=== PATIENT | female | born 1995 | race Caucasian/White ===

== ENCOUNTER 2018-07-14 16:00 | Emergency (ER) | payer OTHER, SELFPAY ==
[2018-07-14 16:09] VITALS: BP 128/61; PULSE 80; RESP 18; TEMP 36.4; O2SAT 97; BMI 34.3
[2018-07-14] MEDS: TET,DIPH,PERTUSS(ACELL),VAC/PF 0.5 ML SYRINGE IM (17:29)
--- NOTE | 2018-07-14 17:33 | ED_ITS ---
HPI - Wound/Laceration <DANIA Dumont - Last Filed: 07/14/18 21:34> General Chief Complaint: Wound/Laceration Stated Complaint: Cut on R thumb Time Seen by Provider: 07/14/18 16:22 Source: patient Mode of arrival: ambulatory Limitations: no limitations History of Present Illness HPI narrative: Patient is a 22-year-old female single nonsmoker who presents with a chief complaint of a laceration on the medial aspect of her right thumb. She states that she was cut by shattered glass. She does not. She states for her motion. She has applied pressure in complains of continued bleeding. She denies any erythema or pus. Happened just prior to arrival. Related Data Allergies Allergy/AdvReac Type Severity Reaction Status Date / Time No Known Drug Allergies Allergy Verified 07/14/18 16:17 Review of Systems <EFRAÍN DumontPBrittani - Last Filed: 07/14/18 21:34> Review of Systems GENERAL: Denies chills, fatigue, malaise, fever, sweats. HEENT: Denies sinus pain, ear pain, sore throat, difficulty swallowing, dizziness. RESPIRATORY: Denies dyspnea, cough, wheezing, hemoptysis, sputum. CARDIOVASCULAR: Denies chest pain, palpitations, orthopnea, edema, GASTROINTESTINAL: Denies nausea, vomiting, abdominal pain, diarrhea, constipation, melena. : Denies dysuria, frequency, incontinence, hematuria, urinary retention. MUSCULOSKELETAL: denies weakness, joint pain, or bony pain SKIN: See HPI NEUROLOGIC: Denies weakness, headache, numbness, change in speech, confusion, seizures, incoordination. PSYCHIATRIC: No concerning psychosocial issues. 12 point review of systems is negative except for those stated above Exam <EFRAÍN DumontPBrittani - Last Filed: 07/14/18 21:34> Narrative Exam Narrative: GENERAL: This is a well-nourished, well-developed patient, in mild distress. HEAD: Atraumatic. Normocephalic. No temporal or scalp tenderness. EYES: Pupils equal round and reactive. Extraocular motions intact. No scleral icterus. No injection or drainage. ENT: Nose without bleeding, purulent drainage or septal hematoma. Throat without erythema, tonsillar hypertrophy or exudate. Uvula midline. Airway patent. NECK: Trachea midline. No JVD or lymphadenopathy. Supple, nontender, no meningeal signs. CARDIOVASCULAR: Regular rate and rhythm without murmurs, gallops, or rubs. RESPIRATORY: Clear to auscultation. Breath sounds equal bilaterally. No wheezes , rales, or rhonchi. GASTROINTESTINAL: Abdomen soft, non-tender, nondistended. No hepato-splenomegaly , or palpable masses. No guarding. EXTREMITIES: No clubbing, cyanosis, or edema. No joint tenderness, effusion, or edema noted. Full range of motion noted right thumb. Capillary refill less than 2 sec right thumb. BACK: Nontender without deformity or crepitance. No flank tenderness. NEURO: AOx3. SKIN: 1 cm v-shaped laceration Initial Vital Signs Initial Vital Signs: Vital Signs Temperature 97.6 F 07/14/18 16:09 Pulse Rate 80 07/14/18 16:09 Respiratory Rate 18 07/14/18 16:09 Blood Pressure 128/61 07/14/18 16:09 Pulse Oximetry 97 07/14/18 16:09 <Yoselin Nova DO - Last Filed: 07/15/18 07:40> Initial Vital Signs Initial Vital Signs: Vital Signs Temperature 97.6 F 07/14/18 16:09 Pulse Rate 80 07/14/18 16:09 Respiratory Rate 18 07/14/18 16:09 Blood Pressure 128/61 07/14/18 16:09 Pulse Oximetry 97 07/14/18 16:09 Procedures <KETAN Dumont - Last Filed: 07/14/18 21:34> Laceration Repair Laceration 1: Site: hand Side (If applicable): right Size (cm): 1 Description: stellate Depth: simple, single layer Pre-repair: wound explored, irrigated extensively (Cleansed with sterile water, Hibiclens) and deep structures intact Skin layer closed with: other (Dermabond and steri strip ) Course <KETAN Dumont - Last Filed: 07/14/18 21:34> Orders Ordered: Discontinued Medications Diphtheria/Tetanus/Acell Pertussis (Adacel) 0.5 ml IM .ONCE ONE Stop: 07/14/18 17:00 Last Admin: 07/14/18 17:29 Dose: 0.5 ml Vital Signs - 8 hr 07/14/18 16:09 07/14/18 18:05 Temperature 97.6 F Pulse Rate 80 82 Respiratory Rate 18 16 Blood Pressure 128/61 Blood Pressure [Left Arm] 120/83 Pulse Oximetry 97 100 <Yoselin Nova DO - Last Filed: 07/15/18 07:40> Orders Ordered: Discontinued Medications Diphtheria/Tetanus/Acell Pertussis (Adacel) 0.5 ml IM .ONCE ONE Stop: 07/14/18 17:00 Last Admin: 07/14/18 17:29 Dose: 0.5 ml Vital Signs - 8 hr 07/14/18 16:09 07/14/18 18:05 Temperature 97.6 F Pulse Rate 80 82 Respiratory Rate 18 16 Blood Pressure 128/61 Blood Pressure [Left Arm] 120/83 Pulse Oximetry 97 100 MDM - Wound/Laceration <YONIS Dumont-BC - Last Filed: 07/14/18 21:34> MDM Narrative Medical decision making narrative: Patient is 22-year-old female presents with a 1 cm laceration on her thumb. It was cleansed with water and Hibiclens. Her tetanus was updated. The wound was closed with Dermabond and Steri-Strips without incident. I discussed at length return precautions and monitoring for signs and symptoms of infection such as erythema pus and fever. Patient no questions or concerns upon discharge. Discharge Plan Departure Patient Disposition: Home Clinical Impression: Laceration Discharge Date/Time: 07/14/18 18:17 Interventions: ED Discharge Assessment Last Done: 07/14/18 18:17 Instructions: DI for Laceration Repair Steri-Strips, DI for Laceration Repair With Dermabond Activity Restrictions/Additional Instructions: Please monitor your wound for signs and symptoms of infection. Please follow- up with your primary care provider if you notice any signs of infection such as redness, pus fever. Please keep your thumb clean and dry and intact. Please do not submerge her thumb in to dirty water. I have given you a work note for a few days off of work. We also updated your tetanus today. Stand Alone Forms: Work Release Note <Yoselin Nova DO - Last Filed: 07/15/18 07:40> Cosign ED Attending Olyaature Attestation: I was immediately available in the department for consultation. Documentation has been reviewed. I agree with assessment and plan.
[2018-07-14 18:05] VITALS: BP 120/83; PULSE 82; RESP 16; O2SAT 100
== END 2018-07-14 18:17 | disposition home or self-care (01) ==
PROVIDERS: Emergency Provider Nurse Practitioner Family
DX: S61.011A Laceration without foreign body of right thumb without damage to nail, initial encounter (principal); W25.XXXA Contact with sharp glass, initial encounter
CPT/HCPCS: 90471; 99283; 90715

== ENCOUNTER 2018-08-06 12:32 | Emergency (ER) | payer OTHER, MEDICAID, SELFPAY ==
[2018-08-06 12:42] VITALS: BP 142/90; PULSE 128; RESP 15; TEMP 39.9; O2SAT 94; BMI 33.2
[2018-08-06 12:56] VITALS: TEMP 39.5
[2018-08-06] MEDS: ACETAMINOPHEN 325 MG TABLET 975 MG PO (12:56)
--- NOTE | 2018-08-06 13:15 | DI.RAD.S_ITS ---
PROCEDURE: XR CHEST 1V INDICATIONS: suspected sepsis TECHNIQUE: One view of the chest was acquired. COMPARISON: None. FINDINGS: Surgical changes and devices: None. Lungs and pleura: No pleural effusions or pneumothorax. Lungs are clear. Mediastinum: Mediastinal contours appear normal. Heart size is normal. Bones and chest wall: No suspicious bony lesions. Mild to moderate dextroconvex curvature of the thoracic spine is present. Overlying soft tissues appear unremarkable. IMPRESSION: No acute cardiopulmonary process is evident. Dictated by: Sohan Feldman M.D. on 08/06/2018 at 12:49 Approved by: Sohan Feldman M.D. on 08/06/2018 at 12:50
[2018-08-06] MEDS: SODIUM CHLORIDE 0.9% 1,000 ML 1000 ML IV (13:25)
[2018-08-06 13:27] LABS: Add Manual Diff / Slide Review NO; Basophils Absolute Auto 0 /uL (0-100); Basophils Percent Auto 0.3 % (0-2); Eosinophils Absolute Auto 0 /uL (0-450); Eosinophils Percent Auto 0.1 % (2-4); Hematocrit 41.5 % (36-46); Hemoglobin 13.6 g/dL (12.0-16.0); Lymphocytes Absolute Auto 1100 /uL (1100-4500); Mean Corpuscular HGB Conc 32.8 % (30-36); Mean Corpuscular Volume 82.5 fL (80-100); Monocytes Absolute Auto 700 /uL (0-900); Monocytes Percent Auto 10.1 % (3-14); Neutrophils Absolute Auto 5200 /uL (1500-7000); Neutrophils Percent Auto 73.5 % (50-75); Platelet Count 212 X10^3/uL (150-400); Red Blood Cell Count 5.04 X10^6/uL (4.0-5.2)
[2018-08-06 13:36] LABS: INR 1.3 (0.9-1.3); Prothrombin Time 15.3 SECONDS (10.1-12.7)
[2018-08-06 13:39] LABS: PTT Partial Thromboplastin Tim 33 SECONDS (26.4-36.2)
[2018-08-06 13:42] LABS: Lactate (Lactic Acid) 0.9 mmol/L (0.7-2.1)
[2018-08-06 13:47] LABS: Alanine Aminotransferase 32 IU/L (9-52); Albumin 4.4 g/dL (3.5-5.0); Albumin Globulin Ratio 1.3 (1.0-2.8); Alkaline Phosphatase 66 U/L (38-126); Aspartate Aminotransferase 31 IU/L (14-36); BUN Creatinine Ratio 12.9 (6-22); Bilirubin Total 0.3 mg/dL (0.2-1.3); Blood Urea Nitrogen 9 mg/dL (7-17); Calcium 8.6 mg/dL (8.4-10.2); Carbon Dioxide 18 mmol/L (22-32); Chloride 105 mmol/L (98-107); Estimated Glomerular Filt Rate > 60.0 mL/min (>60); Globulin 3.4 g/dL (1.7-4.1); Glucose 109 mg/dL (70-100); HEMOLYSIS < 15 (0-50); Lipase 96 U/L (23-300); Sodium 136 mmol/L (137-145); Total Protein 7.8 g/dL (6.3-8.2)
--- NOTE | 2018-08-06 13:53 | ED.URI ---
HPI - URI/Sore Throat <Reina Reynoso PA-C - Last Filed: 08/06/18 21:30> General Chief Complaint: Upper Respiratory Symptoms Stated Complaint: thinks she has strep throat Time Seen by Provider: 08/06/18 13:00 Source: patient and family Mode of arrival: ambulatory Limitations: no limitations History of Present Illness HPI Narrative: This 22-year-old female the ED secondary to 3 day history of cough, mostly dry, with headache and sore throat. She states that she has had intermittent pain in her neck and also aches all over in her joints sore everywhere . She states that she has had some runny nose. She has had some left earache. She has had some sinus congestion but denies sinus pain. She denies wheeze or dyspnea. She states that she has some diarrhea if she coughs hard enough, and sometimes coughs to the point that she will dry heave. She has not had any abdominal pain or nausea. She denies any rashes. She denies any specific exposures but numerous coworkers have been ill. She denies possibility of stating test was negative yesterday. She is concerned that she has strep throat. She states that headache started after cough. She has been working out quite a lot lately but denies any specific trauma Related Data Allergies Allergy/AdvReac Type Severity Reaction Status Date / Time No Known Drug Allergies Allergy Verified 08/06/18 12:42 Review of Systems <Reina Reynoso PA-C - Last Filed: 08/06/18 21:30> Review of Systems ROS Unobtainable: All systems reviewed & are unremarkable except as noted in HPI and below Exam <Reina Reynoso PA-C - Last Filed: 08/06/18 21:30> Narrative Exam Narrative: GENERAL APPEARANCE: Patient sitting comfortably, in no distress. HEAD: No sinus TTP. EYES: PERRL, EOMI. EARS: Normal auditory canals, TMS intact with normal light reflexes. ORAL CAVITY: Normal oropharynx. THROAT: Moderate erythema and tonsillar enlargement without exudate NECK/THYROID: Neck supple, full range of motion, no cervical lymphadenopathy. LUNGS: Clear to auscultation bilaterally, occasional hoarse cough on exam. HEART: RRR without murmur, nl S1, S2, no S3 or S4. ABDOMEN: Soft, nontender, nondistended, +bowel sounds x4 quadrants DERMATOLOGIC: No exanthem MUSCULOSKELETAL: No tenderness over the cervical spine or paraspinal musculature. She is tender over the strap musculature especially at the suboccipital insertions. Full range of motion of the cervical spine. NEUROLOGIC: Alert and oriented with normal speech and coordination Initial Vital Signs Initial Vital Signs: Vital Signs Temperature 103.9 F H 08/06/18 12:42 Pulse Rate 128 H 08/06/18 12:42 Respiratory Rate 15 08/06/18 12:42 Blood Pressure 142/90 H 08/06/18 12:42 Pulse Oximetry 94 08/06/18 12:42 <DO Brittani Landry Last Filed: 08/07/18 08:24> Initial Vital Signs Initial Vital Signs: Vital Signs Temperature 103.9 F H 08/06/18 12:42 Pulse Rate 128 H 08/06/18 12:42 Respiratory Rate 15 08/06/18 12:42 Blood Pressure 142/90 H 08/06/18 12:42 Pulse Oximetry 94 08/06/18 12:42 Course <Reina Reynoso PA-C - Last Filed: 08/06/18 21:30> Orders Ordered: Discontinued Medications Acetaminophen (Tylenol) 975 mg PO NOW ONE Stop: 08/06/18 12:55 Last Admin: 08/06/18 12:56 Dose: 975 mg Sodium Chloride (Normal Saline 0.9%) 1,000 mls @ 1,000 mls/hr IV BOLUS ONE Stop: 08/06/18 14:14 Last Infusion: 08/06/18 14:44 Dose: 0 mls/hr Admin: 08/06/18 13:25 Dose: 1,000 mls/hr Loperamide HCl (Imodium) 4 mg PO NOW ONE Stop: 08/06/18 14:41 Last Admin: 08/06/18 15:05 Dose: 4 mg Vital Signs - 8 hr 08/06/18 13:57 08/06/18 14:06 08/06/18 15:40 Temperature 100.5 F H Pulse Rate 140 H 101 H Respiratory Rate 24 16 Blood Pressure 124/77 Blood Pressure [Left Arm] 112/67 Pulse Oximetry 93 100 <DO Brittani Landry Last Filed: 08/07/18 08:24> Orders Ordered: Discontinued Medications Acetaminophen (Tylenol) 975 mg PO NOW ONE Stop: 08/06/18 12:55 Last Admin: 08/06/18 12:56 Dose: 975 mg Sodium Chloride (Normal Saline 0.9%) 1,000 mls @ 1,000 mls/hr IV BOLUS ONE Stop: 08/06/18 14:14 Last Infusion: 08/06/18 14:44 Dose: 0 mls/hr Admin: 08/06/18 13:25 Dose: 1,000 mls/hr Loperamide HCl (Imodium) 4 mg PO NOW ONE Stop: 08/06/18 14:41 Last Admin: 08/06/18 15:05 Dose: 4 mg Vital Signs - 8 hr 08/06/18 13:57 08/06/18 14:06 08/06/18 15:40 Temperature 100.5 F H Pulse Rate 140 H 101 H Respiratory Rate 24 16 Blood Pressure 124/77 Blood Pressure [Left Arm] 112/67 Pulse Oximetry 93 100 MDM - URI/Sore Throat <Reina Reynoso PA-C - Last Filed: 08/06/18 21:30> Lab Data Result diagrams: 08/06/18 13:10 08/06/18 13:10 Lab Results 08/06/18 08/06/18 08/06/18 Range/Units 13:10 13:10 13:10 WBC 7.0 (4.5-11.0) X10^3/uL RBC 5.04 (4.0-5.2) X10^6/uL Hgb 13.6 (12.0-16.0) g/dL Hct 41.5 (36-46) % MCV 82.5 (80-100) fL MCH 27.0 (26-34) PG MCHC 32.8 (30-36) % RDW 15.0 H (11.6-14.8) % Plt Count 212 (150-400) X10^3/uL Neut % (Auto) 73.5 (50-75) % Lymph % (Auto) 16.0 L (25-40) % [place] % (Auto) 10.1 (3-14) % Eos % (Auto) 0.1 L (2-4) % Baso % (Auto) 0.3 (0-2) % Neut # (Auto) 5200 (8562-3083) /uL Lymph # (Auto) 1100 (2848-8184) /uL [place] # (Auto) 700 (0-900) /uL Eos # (Auto) 0 (0-450) /uL Baso # (Auto) 0 (0-100) /uL PT 15.3 H (10.1-12.7) SECONDS INR 1.3 (0.9-1.3) APTT 33 (26.4-36.2) SECONDS Sodium (137-145) mmol/L Potassium (3.4-5.1) mmol/L Chloride (98-107) mmol/L Carbon Dioxide (22-32) mmol/L BUN (7-17) mg/dL Creatinine (0.52-1.04) mg/dL Estimated GFR (>60) mL/min BUN/Creatinine Ratio (6-22) Glucose (70-100) mg/dL Lactate (0.7-2.1) mmol/L Calcium (8.4-10.2) mg/dL Total Bilirubin (0.2-1.3) mg/dL AST (14-36) IU/L ALT (9-52) IU/L Alkaline Phosphatase (38-126) U/L Total Protein (6.3-8.2) g/dL Albumin (3.5-5.0) g/dL Globulin (1.7-4.1) g/dL Albumin/Globulin Ratio (1.0-2.8) Lipase (23-300) U/L Procalcitonin 0.09 (<0.5) ng/mL Monoscreen (Negative) Influenza A & B (PCR) (Negative) 08/06/18 08/06/18 08/06/18 Range/Units 13:10 13:10 13:10 WBC (4.5-11.0) X10^3/uL RBC (4.0-5.2) X10^6/uL Hgb (12.0-16.0) g/dL Hct (36-46) % MCV (80-100) fL MCH (26-34) PG MCHC (30-36) % RDW (11.6-14.8) % Plt Count (150-400) X10^3/uL Neut % (Auto) (50-75) % Lymph % (Auto) (25-40) % [place] % (Auto) (3-14) % Eos % (Auto) (2-4) % Baso % (Auto) (0-2) % Neut # (Auto) (0959-8112) /uL Lymph # (Auto) (4111-1975) /uL [place] # (Auto) (0-900) /uL Eos # (Auto) (0-450) /uL Baso # (Auto) (0-100) /uL PT (10.1-12.7) SECONDS INR (0.9-1.3) APTT (26.4-36.2) SECONDS Sodium 136 L (137-145) mmol/L Potassium 4.0 (3.4-5.1) mmol/L Chloride 105 (98-107) mmol/L Carbon Dioxide 18 L (22-32) mmol/L BUN 9 (7-17) mg/dL Creatinine 0.70 (0.52-1.04) mg/dL Estimated GFR > 60.0 (>60) mL/min BUN/Creatinine Ratio 12.9 (6-22) Glucose 109 H (70-100) mg/dL Lactate 0.9 (0.7-2.1) mmol/L Calcium 8.6 (8.4-10.2) mg/dL Total Bilirubin 0.3 (0.2-1.3) mg/dL AST 31 (14-36) IU/L ALT 32 (9-52) IU/L Alkaline Phosphatase 66 (38-126) U/L Total Protein 7.8 (6.3-8.2) g/dL Albumin 4.4 (3.5-5.0) g/dL Globulin 3.4 (1.7-4.1) g/dL Albumin/Globulin Ratio 1.3 (1.0-2.8) Lipase 96 (23-300) U/L Procalcitonin (<0.5) ng/mL Monoscreen Negative (Negative) Influenza A & B (PCR) (Negative) 08/06/18 Range/Units 13:57 WBC (4.5-11.0) X10^3/uL RBC (4.0-5.2) X10^6/uL Hgb (12.0-16.0) g/dL Hct (36-46) % MCV (80-100) fL MCH (26-34) PG MCHC (30-36) % RDW (11.6-14.8) % Plt Count (150-400) X10^3/uL Neut % (Auto) (50-75) % Lymph % (Auto) (25-40) % [place] % (Auto) (3-14) % Eos % (Auto) (2-4) % Baso % (Auto) (0-2) % Neut # (Auto) (5087-3372) /uL Lymph # (Auto) (7408-7037) /uL [place] # (Auto) (0-900) /uL Eos # (Auto) (0-450) /uL Baso # (Auto) (0-100) /uL PT (10.1-12.7) SECONDS INR (0.9-1.3) APTT (26.4-36.2) SECONDS Sodium (137-145) mmol/L Potassium (3.4-5.1) mmol/L Chloride (98-107) mmol/L Carbon Dioxide (22-32) mmol/L BUN (7-17) mg/dL Creatinine (0.52-1.04) mg/dL Estimated GFR (>60) mL/min BUN/Creatinine Ratio (6-22) Glucose (70-100) mg/dL Lactate (0.7-2.1) mmol/L Calcium (8.4-10.2) mg/dL Total Bilirubin (0.2-1.3) mg/dL AST (14-36) IU/L ALT (9-52) IU/L Alkaline Phosphatase (38-126) U/L Total Protein (6.3-8.2) g/dL Albumin (3.5-5.0) g/dL Globulin (1.7-4.1) g/dL Albumin/Globulin Ratio (1.0-2.8) Lipase (23-300) U/L Procalcitonin (<0.5) ng/mL Monoscreen (Negative) Influenza A & B (PCR) Positive, type a A (Negative) Point of Care Testing Test Results Negative Rapid Strep A Negative Urine Dip Bedside Urine Glucose Negative Bedside Urine Bilirubin - Negative Bedside Urine Ketone - Negative Urine Specific [place] 1.020 Bedside Urine Occult Blood + Bedside Urine pH 6.0 Bedside Urine Protein +/- 15 Bedside Urine Urobilinogen - Negative Bedside Urine Nitrite - Negative Bedside Urine Leukocytes + 70 Esterase Imaging Data Chest x-ray: Radiologist's impression: XRay Report Signed Patient: Micheline Joe MR#: [id number] : 1995 Acct:[id number] Age/Sex: 22 / F Date of Service: 08/06/18 Loc: ED Accession Number: [id number] Procedure: XR chest 1V Ordering Provider: Talon Welsh D.O. PROCEDURE: XR CHEST 1V INDICATIONS: suspected sepsis TECHNIQUE: One view of the chest was acquired. COMPARISON: None. FINDINGS: Surgical changes and devices: None. Lungs and pleura: No pleural effusions or pneumothorax. Lungs are clear. Mediastinum: Mediastinal contours appear normal. Heart size is normal. Bones and chest wall: No suspicious bony lesions. Mild to moderate dextroconvex curvature of the thoracic spine is present. Overlying soft tissues appear unremarkable. IMPRESSION: No acute cardiopulmonary process is evident. Dictated by: Sohan Feldman M.D. on 08/06/2018 at 12:49 Approved by: Sohan Feldman M.D. on 08/06/2018 at 12:50 <Talon Welsh DO - Last Filed: 08/07/18 08:24> Lab Data Lab Results 08/06/18 08/06/18 08/06/18 Range/Units 13:10 13:10 13:10 WBC 7.0 (4.5-11.0) X10^3/uL RBC 5.04 (4.0-5.2) X10^6/uL Hgb 13.6 (12.0-16.0) g/dL Hct 41.5 (36-46) % MCV 82.5 (80-100) fL MCH 27.0 (26-34) PG MCHC 32.8 (30-36) % RDW 15.0 H (11.6-14.8) % Plt Count 212 (150-400) X10^3/uL Neut % (Auto) 73.5 (50-75) % Lymph % (Auto) 16.0 L (25-40) % [place] % (Auto) 10.1 (3-14) % Eos % (Auto) 0.1 L (2-4) % Baso % (Auto) 0.3 (0-2) % Neut # (Auto) 5200 (6983-9943) /uL Lymph # (Auto) 1100 (8053-3300) /uL [place] # (Auto) 700 (0-900) /uL Eos # (Auto) 0 (0-450) /uL Baso # (Auto) 0 (0-100) /uL PT 15.3 H (10.1-12.7) SECONDS INR 1.3 (0.9-1.3) APTT 33 (26.4-36.2) SECONDS Sodium (137-145) mmol/L Potassium (3.4-5.1) mmol/L Chloride (98-107) mmol/L Carbon Dioxide (22-32) mmol/L BUN (7-17) mg/dL Creatinine (0.52-1.04) mg/dL Estimated GFR (>60) mL/min BUN/Creatinine Ratio (6-22) Glucose (70-100) mg/dL Lactate (0.7-2.1) mmol/L Calcium (8.4-10.2) mg/dL Total Bilirubin (0.2-1.3) mg/dL AST (14-36) IU/L ALT (9-52) IU/L Alkaline Phosphatase (38-126) U/L Total Protein (6.3-8.2) g/dL Albumin (3.5-5.0) g/dL Globulin (1.7-4.1) g/dL Albumin/Globulin Ratio (1.0-2.8) Lipase (23-300) U/L Procalcitonin 0.09 (<0.5) ng/mL Monoscreen (Negative) Influenza A & B (PCR) (Negative) 08/06/18 08/06/18 08/06/18 Range/Units 13:10 13:10 13:10 WBC (4.5-11.0) X10^3/uL RBC (4.0-5.2) X10^6/uL Hgb (12.0-16.0) g/dL Hct (36-46) % MCV (80-100) fL MCH (26-34) PG MCHC (30-36) % RDW (11.6-14.8) % Plt Count (150-400) X10^3/uL Neut % (Auto) (50-75) % Lymph % (Auto) (25-40) % [place] % (Auto) (3-14) % Eos % (Auto) (2-4) % Baso % (Auto) (0-2) % Neut # (Auto) (7713-7973) /uL Lymph # (Auto) (3817-8746) /uL [place] # (Auto) (0-900) /uL Eos # (Auto) (0-450) /uL Baso # (Auto) (0-100) /uL PT (10.1-12.7) SECONDS INR (0.9-1.3) APTT (26.4-36.2) SECONDS Sodium 136 L (137-145) mmol/L Potassium 4.0 (3.4-5.1) mmol/L Chloride 105 (98-107) mmol/L Carbon Dioxide 18 L (22-32) mmol/L BUN 9 (7-17) mg/dL Creatinine 0.70 (0.52-1.04) mg/dL Estimated GFR > 60.0 (>60) mL/min BUN/Creatinine Ratio 12.9 (6-22) Glucose 109 H (70-100) mg/dL Lactate 0.9 (0.7-2.1) mmol/L Calcium 8.6 (8.4-10.2) mg/dL Total Bilirubin 0.3 (0.2-1.3) mg/dL AST 31 (14-36) IU/L ALT 32 (9-52) IU/L Alkaline Phosphatase 66 (38-126) U/L Total Protein 7.8 (6.3-8.2) g/dL Albumin 4.4 (3.5-5.0) g/dL Globulin 3.4 (1.7-4.1) g/dL Albumin/Globulin Ratio 1.3 (1.0-2.8) Lipase 96 (23-300) U/L Procalcitonin (<0.5) ng/mL Monoscreen Negative (Negative) Influenza A & B (PCR) (Negative) 08/06/18 Range/Units 13:57 WBC (4.5-11.0) X10^3/uL RBC (4.0-5.2) X10^6/uL Hgb (12.0-16.0) g/dL Hct (36-46) % MCV (80-100) fL MCH (26-34) PG MCHC (30-36) % RDW (11.6-14.8) % Plt Count (150-400) X10^3/uL Neut % (Auto) (50-75) % Lymph % (Auto) (25-40) % [place] % (Auto) (3-14) % Eos % (Auto) (2-4) % Baso % (Auto) (0-2) % Neut # (Auto) (7362-3750) /uL Lymph # (Auto) (9955-1187) /uL [place] # (Auto) (0-900) /uL Eos # (Auto) (0-450) /uL Baso # (Auto) (0-100) /uL PT (10.1-12.7) SECONDS INR (0.9-1.3) APTT (26.4-36.2) SECONDS Sodium (137-145) mmol/L Potassium (3.4-5.1) mmol/L Chloride (98-107) mmol/L Carbon Dioxide (22-32) mmol/L BUN (7-17) mg/dL Creatinine (0.52-1.04) mg/dL Estimated GFR (>60) mL/min BUN/Creatinine Ratio (6-22) Glucose (70-100) mg/dL Lactate (0.7-2.1) mmol/L Calcium (8.4-10.2) mg/dL Total Bilirubin (0.2-1.3) mg/dL AST (14-36) IU/L ALT (9-52) IU/L Alkaline Phosphatase (38-126) U/L Total Protein (6.3-8.2) g/dL Albumin (3.5-5.0) g/dL Globulin (1.7-4.1) g/dL Albumin/Globulin Ratio (1.0-2.8) Lipase (23-300) U/L Procalcitonin (<0.5) ng/mL Monoscreen (Negative) Influenza A & B (PCR) Positive, type a A (Negative) Point of Care Testing Test Results Negative Rapid Strep A Negative Urine Dip Bedside Urine Glucose Negative Bedside Urine Bilirubin - Negative Bedside Urine Ketone - Negative Urine Specific [place] 1.020 Bedside Urine Occult Blood + Bedside Urine pH 6.0 Bedside Urine Protein +/- 15 Bedside Urine Urobilinogen - Negative Bedside Urine Nitrite - Negative Bedside Urine Leukocytes + 70 Esterase Discharge Plan Departure Patient Disposition: Home Clinical Impression: Influenza Discharge Date/Time: 08/06/18 15:41 Interventions: ED Discharge Assessment Last Done: 08/06/18 15:40 Instructions: DI for Influenza -- Child Activity Restrictions/Additional Instructions: Your testing is positive for influenza. Please rest. Take 800 mg of ibuprofen every 8 hr to help with aches and fever. You can add Tylenol as needed. You can use [id number] Mucinex and decongestants as needed to help with cough and drainage. You can take over the counter immodium if needed for the loose stools. Return as we talked about if you have new symptoms such as difficulty breathing. Stand Alone Forms: Work Release Note <Talon Welsh DO - Last Filed: 08/07/18 08:24> Cosign ED Attending [place] Attestation: I was immediately available in the department for consultation. Documentation has been reviewed. I agree with assessment and plan.
[2018-08-06 13:57] VITALS: TEMP 38.1
[2018-08-06 13:57] LABS: Procalcitonin 0.09 ng/mL (<0.5)
[2018-08-06 14:06] VITALS: BP 112/67; PULSE 140; RESP 24; O2SAT 93
--- NOTE | 2018-08-06 14:15 | ED_ITS ---
HPI - URI/Sore Throat <Reina Reynoso PA-C - Last Filed: 08/06/18 21:30> General Chief Complaint: Upper Respiratory Symptoms Stated Complaint: thinks she has strep throat Time Seen by Provider: 08/06/18 13:00 Source: patient and family Mode of arrival: ambulatory Limitations: no limitations History of Present Illness HPI Narrative: This 22-year-old female the ED secondary to 3 day history of cough, mostly dry, with headache and sore throat. She states that she has had intermittent pain in her neck and also aches all over in her joints sore everywhere . She states that she has had some runny nose. She has had some left earache. She has had some sinus congestion but denies sinus pain. She denies wheeze or dyspnea. She states that she has some diarrhea if she coughs hard enough, and sometimes coughs to the point that she will dry heave. She has not had any abdominal pain or nausea. She denies any rashes. She denies any specific exposures but numerous coworkers have been ill. She denies possibility of stating test was negative yesterday. She is concerned that she has strep throat. She states that headache started after cough. She has been working out quite a lot lately but denies any specific trauma Related Data Allergies Allergy/AdvReac Type Severity Reaction Status Date / Time No Known Drug Allergies Allergy Verified 08/06/18 12:42 Review of Systems <Reina Reynoso PA-C - Last Filed: 08/06/18 21:30> Review of Systems ROS Unobtainable: All systems reviewed & are unremarkable except as noted in HPI and below Exam <Reina Reynoso PA-C - Last Filed: 08/06/18 21:30> Narrative Exam Narrative: GENERAL APPEARANCE: Patient sitting comfortably, in no distress. HEAD: No sinus TTP. EYES: PERRL, EOMI. EARS: Normal auditory canals, TMS intact with normal light reflexes. ORAL CAVITY: Normal oropharynx. THROAT: Moderate erythema and tonsillar enlargement without exudate NECK/THYROID: Neck supple, full range of motion, no cervical lymphadenopathy. LUNGS: Clear to auscultation bilaterally, occasional hoarse cough on exam. HEART: RRR without murmur, nl S1, S2, no S3 or S4. ABDOMEN: Soft, nontender, nondistended, +bowel sounds x4 quadrants DERMATOLOGIC: No exanthem MUSCULOSKELETAL: No tenderness over the cervical spine or paraspinal musculature. She is tender over the strap musculature especially at the suboccipital insertions. Full range of motion of the cervical spine. NEUROLOGIC: Alert and oriented with normal speech and coordination Initial Vital Signs Initial Vital Signs: Vital Signs Temperature 103.9 F H 08/06/18 12:42 Pulse Rate 128 H 08/06/18 12:42 Respiratory Rate 15 08/06/18 12:42 Blood Pressure 142/90 H 08/06/18 12:42 Pulse Oximetry 94 08/06/18 12:42 <DO Brittani Landry Last Filed: 08/07/18 08:24> Initial Vital Signs Initial Vital Signs: Vital Signs Temperature 103.9 F H 08/06/18 12:42 Pulse Rate 128 H 08/06/18 12:42 Respiratory Rate 15 08/06/18 12:42 Blood Pressure 142/90 H 08/06/18 12:42 Pulse Oximetry 94 08/06/18 12:42 Course <Reina Reynoso PA-C - Last Filed: 08/06/18 21:30> Orders Ordered: Discontinued Medications Acetaminophen (Tylenol) 975 mg PO NOW ONE Stop: 08/06/18 12:55 Last Admin: 08/06/18 12:56 Dose: 975 mg Sodium Chloride (Normal Saline 0.9%) 1,000 mls @ 1,000 mls/hr IV BOLUS ONE Stop: 08/06/18 14:14 Last Infusion: 08/06/18 14:44 Dose: 0 mls/hr Admin: 08/06/18 13:25 Dose: 1,000 mls/hr Loperamide HCl (Imodium) 4 mg PO NOW ONE Stop: 08/06/18 14:41 Last Admin: 08/06/18 15:05 Dose: 4 mg Vital Signs - 8 hr 08/06/18 13:57 08/06/18 14:06 08/06/18 15:40 Temperature 100.5 F H Pulse Rate 140 H 101 H Respiratory Rate 24 16 Blood Pressure 124/77 Blood Pressure [Left Arm] 112/67 Pulse Oximetry 93 100 <DO Brittani Landry Last Filed: 08/07/18 08:24> Orders Ordered: Discontinued Medications Acetaminophen (Tylenol) 975 mg PO NOW ONE Stop: 08/06/18 12:55 Last Admin: 08/06/18 12:56 Dose: 975 mg Sodium Chloride (Normal Saline 0.9%) 1,000 mls @ 1,000 mls/hr IV BOLUS ONE Stop: 08/06/18 14:14 Last Infusion: 08/06/18 14:44 Dose: 0 mls/hr Admin: 08/06/18 13:25 Dose: 1,000 mls/hr Loperamide HCl (Imodium) 4 mg PO NOW ONE Stop: 08/06/18 14:41 Last Admin: 08/06/18 15:05 Dose: 4 mg Vital Signs - 8 hr 08/06/18 13:57 08/06/18 14:06 08/06/18 15:40 Temperature 100.5 F H Pulse Rate 140 H 101 H Respiratory Rate 24 16 Blood Pressure 124/77 Blood Pressure [Left Arm] 112/67 Pulse Oximetry 93 100 MDM - URI/Sore Throat <Reina Reynoso PA-C - Last Filed: 08/06/18 21:30> Lab Data Result diagrams: 08/06/18 13:10 08/06/18 13:10 Lab Results 08/06/18 08/06/18 08/06/18 Range/Units 13:10 13:10 13:10 WBC 7.0 (4.5-11.0) X10^3/uL RBC 5.04 (4.0-5.2) X10^6/uL Hgb 13.6 (12.0-16.0) g/dL Hct 41.5 (36-46) % MCV 82.5 (80-100) fL MCH 27.0 (26-34) PG MCHC 32.8 (30-36) % RDW 15.0 H (11.6-14.8) % Plt Count 212 (150-400) X10^3/uL Neut % (Auto) 73.5 (50-75) % Lymph % (Auto) 16.0 L (25-40) % [place] % (Auto) 10.1 (3-14) % Eos % (Auto) 0.1 L (2-4) % Baso % (Auto) 0.3 (0-2) % Neut # (Auto) 5200 (0932-0622) /uL Lymph # (Auto) 1100 (7681-4789) /uL [place] # (Auto) 700 (0-900) /uL Eos # (Auto) 0 (0-450) /uL Baso # (Auto) 0 (0-100) /uL PT 15.3 H (10.1-12.7) SECONDS INR 1.3 (0.9-1.3) APTT 33 (26.4-36.2) SECONDS Sodium (137-145) mmol/L Potassium (3.4-5.1) mmol/L Chloride (98-107) mmol/L Carbon Dioxide (22-32) mmol/L BUN (7-17) mg/dL Creatinine (0.52-1.04) mg/dL Estimated GFR (>60) mL/min BUN/Creatinine Ratio (6-22) Glucose (70-100) mg/dL Lactate (0.7-2.1) mmol/L Calcium (8.4-10.2) mg/dL Total Bilirubin (0.2-1.3) mg/dL AST (14-36) IU/L ALT (9-52) IU/L Alkaline Phosphatase (38-126) U/L Total Protein (6.3-8.2) g/dL Albumin (3.5-5.0) g/dL Globulin (1.7-4.1) g/dL Albumin/Globulin Ratio (1.0-2.8) Lipase (23-300) U/L Procalcitonin 0.09 (<0.5) ng/mL Monoscreen (Negative) Influenza A & B (PCR) (Negative) 08/06/18 08/06/18 08/06/18 Range/Units 13:10 13:10 13:10 WBC (4.5-11.0) X10^3/uL RBC (4.0-5.2) X10^6/uL Hgb (12.0-16.0) g/dL Hct (36-46) % MCV (80-100) fL MCH (26-34) PG MCHC (30-36) % RDW (11.6-14.8) % Plt Count (150-400) X10^3/uL Neut % (Auto) (50-75) % Lymph % (Auto) (25-40) % [place] % (Auto) (3-14) % Eos % (Auto) (2-4) % Baso % (Auto) (0-2) % Neut # (Auto) (0376-2564) /uL Lymph # (Auto) (0103-0780) /uL [place] # (Auto) (0-900) /uL Eos # (Auto) (0-450) /uL Baso # (Auto) (0-100) /uL PT (10.1-12.7) SECONDS INR (0.9-1.3) APTT (26.4-36.2) SECONDS Sodium 136 L (137-145) mmol/L Potassium 4.0 (3.4-5.1) mmol/L Chloride 105 (98-107) mmol/L Carbon Dioxide 18 L (22-32) mmol/L BUN 9 (7-17) mg/dL Creatinine 0.70 (0.52-1.04) mg/dL Estimated GFR > 60.0 (>60) mL/min BUN/Creatinine Ratio 12.9 (6-22) Glucose 109 H (70-100) mg/dL Lactate 0.9 (0.7-2.1) mmol/L Calcium 8.6 (8.4-10.2) mg/dL Total Bilirubin 0.3 (0.2-1.3) mg/dL AST 31 (14-36) IU/L ALT 32 (9-52) IU/L Alkaline Phosphatase 66 (38-126) U/L Total Protein 7.8 (6.3-8.2) g/dL Albumin 4.4 (3.5-5.0) g/dL Globulin 3.4 (1.7-4.1) g/dL Albumin/Globulin Ratio 1.3 (1.0-2.8) Lipase 96 (23-300) U/L Procalcitonin (<0.5) ng/mL Monoscreen Negative (Negative) Influenza A & B (PCR) (Negative) 08/06/18 Range/Units 13:57 WBC (4.5-11.0) X10^3/uL RBC (4.0-5.2) X10^6/uL Hgb (12.0-16.0) g/dL Hct (36-46) % MCV (80-100) fL MCH (26-34) PG MCHC (30-36) % RDW (11.6-14.8) % Plt Count (150-400) X10^3/uL Neut % (Auto) (50-75) % Lymph % (Auto) (25-40) % [place] % (Auto) (3-14) % Eos % (Auto) (2-4) % Baso % (Auto) (0-2) % Neut # (Auto) (1438-4661) /uL Lymph # (Auto) (2427-9419) /uL [place] # (Auto) (0-900) /uL Eos # (Auto) (0-450) /uL Baso # (Auto) (0-100) /uL PT (10.1-12.7) SECONDS INR (0.9-1.3) APTT (26.4-36.2) SECONDS Sodium (137-145) mmol/L Potassium (3.4-5.1) mmol/L Chloride (98-107) mmol/L Carbon Dioxide (22-32) mmol/L BUN (7-17) mg/dL Creatinine (0.52-1.04) mg/dL Estimated GFR (>60) mL/min BUN/Creatinine Ratio (6-22) Glucose (70-100) mg/dL Lactate (0.7-2.1) mmol/L Calcium (8.4-10.2) mg/dL Total Bilirubin (0.2-1.3) mg/dL AST (14-36) IU/L ALT (9-52) IU/L Alkaline Phosphatase (38-126) U/L Total Protein (6.3-8.2) g/dL Albumin (3.5-5.0) g/dL Globulin (1.7-4.1) g/dL Albumin/Globulin Ratio (1.0-2.8) Lipase (23-300) U/L Procalcitonin (<0.5) ng/mL Monoscreen (Negative) Influenza A & B (PCR) Positive, type a A (Negative) Point of Care Testing Test Results Negative Rapid Strep A Negative Urine Dip Bedside Urine Glucose Negative Bedside Urine Bilirubin - Negative Bedside Urine Ketone - Negative Urine Specific [place] 1.020 Bedside Urine Occult Blood + Bedside Urine pH 6.0 Bedside Urine Protein +/- 15 Bedside Urine Urobilinogen - Negative Bedside Urine Nitrite - Negative Bedside Urine Leukocytes + 70 Esterase Imaging Data Chest x-ray: Radiologist's impression: XRay Report Signed Patient: Micheline Joe MR#: [id number] : 1995 Acct:[id number] Age/Sex: 22 / F Date of Service: 08/06/18 Loc: ED Accession Number: [id number] Procedure: XR chest 1V Ordering Provider: Talon Welsh D.O. PROCEDURE: XR CHEST 1V INDICATIONS: suspected sepsis TECHNIQUE: One view of the chest was acquired. COMPARISON: None. FINDINGS: Surgical changes and devices: None. Lungs and pleura: No pleural effusions or pneumothorax. Lungs are clear. Mediastinum: Mediastinal contours appear normal. Heart size is normal. Bones and chest wall: No suspicious bony lesions. Mild to moderate dextroconvex curvature of the thoracic spine is present. Overlying soft tissues appear unremarkable. IMPRESSION: No acute cardiopulmonary process is evident. Dictated by: Sohan Feldman M.D. on 08/06/2018 at 12:49 Approved by: Sohan Feldman M.D. on 08/06/2018 at 12:50 <Talon Welsh DO - Last Filed: 08/07/18 08:24> Lab Data Lab Results 08/06/18 08/06/18 08/06/18 Range/Units 13:10 13:10 13:10 WBC 7.0 (4.5-11.0) X10^3/uL RBC 5.04 (4.0-5.2) X10^6/uL Hgb 13.6 (12.0-16.0) g/dL Hct 41.5 (36-46) % MCV 82.5 (80-100) fL MCH 27.0 (26-34) PG MCHC 32.8 (30-36) % RDW 15.0 H (11.6-14.8) % Plt Count 212 (150-400) X10^3/uL Neut % (Auto) 73.5 (50-75) % Lymph % (Auto) 16.0 L (25-40) % [place] % (Auto) 10.1 (3-14) % Eos % (Auto) 0.1 L (2-4) % Baso % (Auto) 0.3 (0-2) % Neut # (Auto) 5200 (9794-4860) /uL Lymph # (Auto) 1100 (2613-6531) /uL [place] # (Auto) 700 (0-900) /uL Eos # (Auto) 0 (0-450) /uL Baso # (Auto) 0 (0-100) /uL PT 15.3 H (10.1-12.7) SECONDS INR 1.3 (0.9-1.3) APTT 33 (26.4-36.2) SECONDS Sodium (137-145) mmol/L Potassium (3.4-5.1) mmol/L Chloride (98-107) mmol/L Carbon Dioxide (22-32) mmol/L BUN (7-17) mg/dL Creatinine (0.52-1.04) mg/dL Estimated GFR (>60) mL/min BUN/Creatinine Ratio (6-22) Glucose (70-100) mg/dL Lactate (0.7-2.1) mmol/L Calcium (8.4-10.2) mg/dL Total Bilirubin (0.2-1.3) mg/dL AST (14-36) IU/L ALT (9-52) IU/L Alkaline Phosphatase (38-126) U/L Total Protein (6.3-8.2) g/dL Albumin (3.5-5.0) g/dL Globulin (1.7-4.1) g/dL Albumin/Globulin Ratio (1.0-2.8) Lipase (23-300) U/L Procalcitonin 0.09 (<0.5) ng/mL Monoscreen (Negative) Influenza A & B (PCR) (Negative) 08/06/18 08/06/18 08/06/18 Range/Units 13:10 13:10 13:10 WBC (4.5-11.0) X10^3/uL RBC (4.0-5.2) X10^6/uL Hgb (12.0-16.0) g/dL Hct (36-46) % MCV (80-100) fL MCH (26-34) PG MCHC (30-36) % RDW (11.6-14.8) % Plt Count (150-400) X10^3/uL Neut % (Auto) (50-75) % Lymph % (Auto) (25-40) % [place] % (Auto) (3-14) % Eos % (Auto) (2-4) % Baso % (Auto) (0-2) % Neut # (Auto) (2997-1662) /uL Lymph # (Auto) (0926-3763) /uL [place] # (Auto) (0-900) /uL Eos # (Auto) (0-450) /uL Baso # (Auto) (0-100) /uL PT (10.1-12.7) SECONDS INR (0.9-1.3) APTT (26.4-36.2) SECONDS Sodium 136 L (137-145) mmol/L Potassium 4.0 (3.4-5.1) mmol/L Chloride 105 (98-107) mmol/L Carbon Dioxide 18 L (22-32) mmol/L BUN 9 (7-17) mg/dL Creatinine 0.70 (0.52-1.04) mg/dL Estimated GFR > 60.0 (>60) mL/min BUN/Creatinine Ratio 12.9 (6-22) Glucose 109 H (70-100) mg/dL Lactate 0.9 (0.7-2.1) mmol/L Calcium 8.6 (8.4-10.2) mg/dL Total Bilirubin 0.3 (0.2-1.3) mg/dL AST 31 (14-36) IU/L ALT 32 (9-52) IU/L Alkaline Phosphatase 66 (38-126) U/L Total Protein 7.8 (6.3-8.2) g/dL Albumin 4.4 (3.5-5.0) g/dL Globulin 3.4 (1.7-4.1) g/dL Albumin/Globulin Ratio 1.3 (1.0-2.8) Lipase 96 (23-300) U/L Procalcitonin (<0.5) ng/mL Monoscreen Negative (Negative) Influenza A & B (PCR) (Negative) 08/06/18 Range/Units 13:57 WBC (4.5-11.0) X10^3/uL RBC (4.0-5.2) X10^6/uL Hgb (12.0-16.0) g/dL Hct (36-46) % MCV (80-100) fL MCH (26-34) PG MCHC (30-36) % RDW (11.6-14.8) % Plt Count (150-400) X10^3/uL Neut % (Auto) (50-75) % Lymph % (Auto) (25-40) % [place] % (Auto) (3-14) % Eos % (Auto) (2-4) % Baso % (Auto) (0-2) % Neut # (Auto) (0279-8043) /uL Lymph # (Auto) (0406-8099) /uL [place] # (Auto) (0-900) /uL Eos # (Auto) (0-450) /uL Baso # (Auto) (0-100) /uL PT (10.1-12.7) SECONDS INR (0.9-1.3) APTT (26.4-36.2) SECONDS Sodium (137-145) mmol/L Potassium (3.4-5.1) mmol/L Chloride (98-107) mmol/L Carbon Dioxide (22-32) mmol/L BUN (7-17) mg/dL Creatinine (0.52-1.04) mg/dL Estimated GFR (>60) mL/min BUN/Creatinine Ratio (6-22) Glucose (70-100) mg/dL Lactate (0.7-2.1) mmol/L Calcium (8.4-10.2) mg/dL Total Bilirubin (0.2-1.3) mg/dL AST (14-36) IU/L ALT (9-52) IU/L Alkaline Phosphatase (38-126) U/L Total Protein (6.3-8.2) g/dL Albumin (3.5-5.0) g/dL Globulin (1.7-4.1) g/dL Albumin/Globulin Ratio (1.0-2.8) Lipase (23-300) U/L Procalcitonin (<0.5) ng/mL Monoscreen (Negative) Influenza A & B (PCR) Positive, type a A (Negative) Point of Care Testing Test Results Negative Rapid Strep A Negative Urine Dip Bedside Urine Glucose Negative Bedside Urine Bilirubin - Negative Bedside Urine Ketone - Negative Urine Specific [place] 1.020 Bedside Urine Occult Blood + Bedside Urine pH 6.0 Bedside Urine Protein +/- 15 Bedside Urine Urobilinogen - Negative Bedside Urine Nitrite - Negative Bedside Urine Leukocytes + 70 Esterase Discharge Plan Departure Patient Disposition: Home Clinical Impression: Influenza Discharge Date/Time: 08/06/18 15:41 Interventions: ED Discharge Assessment Last Done: 08/06/18 15:40 Instructions: DI for Influenza -- Child Activity Restrictions/Additional Instructions: Your testing is positive for influenza. Please rest. Take 800 mg of ibuprofen every 8 hr to help with aches and fever. You can add Tylenol as needed. You can use [id number] Mucinex and decongestants as needed to help with cough and drainage. You can take over the counter immodium if needed for the loose stools. Return as we talked about if you have new symptoms such as difficulty breathing. Stand Alone Forms: Work Release Note <Talon Welsh DO - Last Filed: 08/07/18 08:24> Cosign ED Attending [place] Attestation: I was immediately available in the department for consultation. Documentation has been reviewed. I agree with assessment and plan.
[2018-08-06] MEDS: LOPERAMIDE 2 MG CAPSULE 4 MG PO (15:05)
[2018-08-06 15:40] VITALS: BP 124/77; PULSE 101; RESP 16; O2SAT 100
[2018-08-11 12:30] LABS: Monotest Negative (Negative)
== END 2018-08-06 15:41 | disposition home or self-care (01) ==
PROVIDERS: Emergency Medicine; Emergency Provider Internal Medicine
DX: J11.1 Influenza due to unidentified influenza virus with other respiratory manifestations (principal)
CPT/HCPCS: 36415; 36591; 71045; 80053; 81003; 81025; 83605; 83690; 84145; 85025; 85610; 85730; 86318; 87040; 87400; 87880; 96360; 99283; 99284

== ENCOUNTER → 2018-11-06 16:02 | Outpatient (CLI) | payer OTHER, MEDICAID, SELFPAY ==
--- NOTE | 2018-11-06 | DI.US.S_ITS ---
PROCEDURE: US OB <= 14 WEEKS FETUS INDICATIONS: INITAL SIZING AND DATING OUTSIDE/PRIOR DATING DATA: Last menstrual period (LMP): Unknown. LMP-based estimated date of delivery (JERO): Unknown. First dating scan (date and location): 11/06/18, [facility] Estimated date of delivery (JERO) from first dating scan: 04/20/19. TECHNIQUE: Real-time scanning was performed of the fetus and maternal pelvic organs, with image documentation. COMPARISON: None. FINDINGS: Embryo: Living early second trimester intrauterine Presentation is breech Placenta is posterior with no previa BPD: 3.0 cm, 15 weeks 4 days HC: 12.9 cm, 16 weeks 4 days AC: 11.4 cm, 17 weeks 2 days FL: 2.1 cm, 16 weeks 2 days Ultrasound estimated gestational age: 16 weeks 3 days IMPRESSION: Living early second trimester intrauterine measuring 16 weeks 3 days. Comment: Consider anatomic survey second trimester ultrasound in 2-4 weeks. Dictated by: Doe Biggs M.D. on 11/06/2018 at 17:57 Approved by: Doe Biggs M.D. on 11/06/2018 at 18:00
== END ==
PROVIDERS: PCP Internal Medicine; Visit Provider Internal Medicine
DX: Z34.92 Encounter for supervision of normal pregnancy, unspecified, second trimester (principal); Z3A.16 16 weeks gestation of pregnancy
CPT/HCPCS: 76811

== ENCOUNTER → 2018-12-02 09:20 | Outpatient (CLI) | payer OTHER, MEDICAID, SELFPAY ==
--- NOTE | 2018-12-02 | DI.US.S_ITS ---
PROCEDURE: US OB >= 14 WEEKS FETUS INDICATIONS: 20 WEEK ANATOMICAL SURVEY OUTSIDE/PRIOR DATING DATA: Last menstrual period (LMP): Unknown. LMP-based estimated date of delivery (JERO): Unknown. First dating scan (date and location): 11/06/18, [facility] Estimated date of delivery (JERO) from first dating scan: 04/20/19.. TECHNIQUE: Real-time scanning was performed of the fetus, with image documentation and biometric measurements. Endovaginal scanning: No COMPARISON: None. FINDINGS: General: A single living intrauterine gestation is present. Presentation: Transverse. Placenta: Placental position is posterior, without previa. Amniotic fluid index: 6.9 cm, normal range is 5-24 cm. heart rate: 143 beats per minute. Maternal cervical canal: 5.7 cm long. Normal lower limit is 2.5 cm. biometrics: Biparietal diameter: 19 weeks 5 days Head circumference: 19 weeks 5 days Abdominal circumference: 20 weeks 2 days Femur length: 20 weeks 2 days Estimated gestational age from initial scan: 20 weeks 1 day Composite gestational age from present scan: 20 weeks 2 days Estimated weight and percentile: 342 g; 52nd percentile Measurement variability for biometric dating: +/- 7 days from 14 weeks to 15 weeks 6 days gestation, +/- 10 days from 16 weeks to 21 weeks 6 days gestation, +/- 2 weeks from 22 weeks to 27 weeks 6 days gestation, +/- 3 weeks for 28 weeks gestation or later. weight reference: 4500 g or EFW >90/95% is considered macrosomia or large for gestational age. EFW <10% is small for gestational age. EFW 5% or less is considered intra-uterine growth restriction. Anatomic survey: Neuro: Ventricles are non-dilated at less than 10 mm. Cisterna magna is normal at 3-11 mm. Cerebellum is normal in size and morphology. Nuchal skin fold: Normal at less than 6 mm between 14-21 weeks gestational age. Face: Not well-seen. Spine: Not well-seen. Heart: 4-chambered heart is present, with normal ventricular outflow tracts. Diaphragm: Diaphragm is intact. Stomach: Left-sided stomach is present. Kidneys: No hydronephrosis. Normal is less than 5 mm in 2nd trimester, less than 7 mm in 3rd trimester. Cord: 3-vessel cord has orthotopic insertion. Bladder: Normal in size. Extremities: All 4 extremities identified. IMPRESSION: 1. Single living IUP redemonstrated and interval growth is normal. 2. face and spine not well-seen; otherwise normal anatomy. Dictated by: Jesus Connolly [facility] Interpreted: Bryant Tinoco MD on 12/02/2018 at 12:04 Approved by: Bryant Tinoco M.D. on 12/02/2018 at 14:31
== END ==
PROVIDERS: PCP Internal Medicine; Visit Provider Family Medicine
DX: Z36.89 Encounter for other specified antenatal screening (principal); Z3A.20 20 weeks gestation of pregnancy
CPT/HCPCS: 76811

== ENCOUNTER → 2019-01-19 08:15 | Outpatient (CLI) | payer OTHER, MEDICAID, SELFPAY ==
--- NOTE | 2019-01-19 | DI.US.S_ITS ---
PROCEDURE: US OB FOLLOW UP INDICATIONS: FOLLOW UP FACE AND SPINE FROM ANATOMY SCAN OUTSIDE/PRIOR DATING DATA: Last menstrual period (LMP): Unknown. LMP-based estimated date of delivery (JERO): Unknown. First dating scan (date and location): 11/06/18, [facility] Estimated date of delivery (JERO) from first dating scan: 04/20/19. TECHNIQUE: Real-time scanning was performed of the fetus, with image documentation and biometric measurements. Endovaginal scanning: No COMPARISON: [facility], , OB >= 14 WEEKS FETUS, 12/02/2018, 9:57. FINDINGS: General: A single living intrauterine gestation is present. Presentation: Vertex. Placenta: Placental position is posterior, without previa. Amniotic fluid index: 11.0 cm, normal range is 5-24 cm. heart rate: 140 beats per minute. Maternal cervical canal: 3.0 cm long. Normal lower limit is 2.5 cm. Estimated gestational age from initial scan: 27 weeks 0 days facial profile well-visualized; otherwise normal appearance the face and spine. IMPRESSION: 1. Single living IUP redemonstrated and today's exam demonstrating normal appearance of the face and spine. Facial profile cannot well-seen. Dictated by: Jesus RAMON Interpreted: Shakila Hoang MD on 01/19/2019 at 17:09 Approved by: Shakila Hoang M.D. on 01/19/2019 at 18:48
== END ==
PROVIDERS: PCP Internal Medicine; Visit Provider Family Medicine
DX: Z36.2 Encounter for other antenatal screening follow-up (principal); Z3A.27 27 weeks gestation of pregnancy
CPT/HCPCS: 76816

== ENCOUNTER → 2019-03-24 18:03 | Outpatient (ROUT) | payer OTHER, MEDICAID, SELFPAY | PROVIDERS: PCP Internal Medicine; Visit Provider Family Medicine | DX: O98.819 Other maternal infectious and parasitic diseases complicating pregnancy, unspecified trimester (principal) | CPT/HCPCS: 87081 ==

== ENCOUNTER 2019-03-26 17:29 | Outpatient (CLI) | payer OTHER, MEDICAID, SELFPAY | END 2019-03-26 18:40 | disposition home or self-care (01) | LOC: OB 04-01 07:45 | PROVIDERS: PCP Family Medicine; Visit Provider Family Medicine | DX: O36.8130 Decreased fetal movements, third trimester, not applicable or unspecified (principal); Z3A.36 36 weeks gestation of pregnancy | CPT/HCPCS: 59025; G0378; G0379 ==

== ENCOUNTER 2019-04-10 01:18 | Inpatient (IN) | payer OTHER, MEDICAID, SELFPAY ==
[2019-04-10 03:53] LABS: Add Manual Diff / Slide Review NO; Basophils Absolute Auto 100 /uL (0-100); Basophils Percent Auto 0.6 % (0-2); Eosinophils Absolute Auto 100 /uL (0-450); Eosinophils Percent Auto 0.6 % (2-4); Hematocrit 42.5 % (36-46); Hemoglobin 13.9 g/dL (12.0-16.0); Lymphocytes Absolute Auto 2300 /uL (1100-4500); Lymphocytes Percent Auto 19.8 % (25-40); Mean Corpuscular HGB Conc 32.7 % (30-36); Mean Corpuscular Volume 85.6 fL (80-100); Monocytes Absolute Auto 800 /uL (0-900); Monocytes Percent Auto 6.9 % (3-14); Neutrophils Absolute Auto 8300 /uL (1500-7000); Neutrophils Percent Auto 72.1 % (50-75); Platelet Count 265 X10^3/uL (150-400); Red Blood Cell Count 4.96 X10^6/uL (4.0-5.2); Red Cell Distribution Width 15.1 % (11.6-14.8); White Blood Cell Count 11.4 X10^3/uL (4.5-11.0)
--- NOTE | 2019-04-10 05:13 | P.HPOB_ITS ---
OB HPI Date/Time Date of admission: 04/10/19 Date Patient Seen: 04/10/19 Time Patient Seen: 05:14 History of Present Condition Chief complaint: Phys ref : 1 Para: 0 Estimated Date of Delivery: 04/20/19 Estimated Gestational Age (weeks): 38.5 Narrative: Micheline Joe is a 23 year old female who presents at 38 and 5 7 weeks with spontaneous rupture. Ruptured at approximately 1:00 a.m. today. Clear fluid. Really would had no significant contractions prior to that. Presented shortly after. Good movement. No blood. Was grossly ruptured. heart monitor was reactive. Patient had unremarkable course. Presented at 18 weeks. testing for genetics was not done. Otherwise labs were within normal limits. 1 hour glucose test was normal. Patient had no issues with blood pressure or other changes. Past medical history significant for hypothyroid. TSH during was normal. Otherwise unremarkable history. Does have a history of scoliosis. Some concern about possible issues with delivery. Had discussed previously with OB and anesthesia and did not feel would be an issue. History of Present care: good care Dating criteria: LMP confirmed by 2nd trimester US Ultrasounds: normal mid trimester US Obstetrical complications: none Medical complications: none Preadmission Labs Blood type: A (+) positive -: Antibody screen: negative, Cystic fibrosis screen: unknown, GBS status: negative, HBsAG: negative, HIV: negative, HSV 1: negative, HSV 2: negative and RPR/VDLR: negative -: Chlamydia screen: not detected and Gonorrhea screen: not detected -: Rubella: immune and Varicella: immune HCT: 42 HCAB: negative PAP: Normal Prior (ies) History: None Evaluation Evaluation Laboratory results: Laboratory Tests 04/10/19 04/10/19 03:43 03:43 WBC 11.4 H RBC 4.96 Hgb 13.9 Hct 42.5 MCV 85.6 MCH 28.0 MCHC 32.7 RDW 15.1 H Plt Count 265 Neut % (Auto) 72.1 Lymph % (Auto) 19.8 L [place] % (Auto) 6.9 Eos % (Auto) 0.6 L Baso % (Auto) 0.6 Neut # (Auto) 8300 H Lymph # (Auto) 2300 [place] # (Auto) 800 Eos # (Auto) 100 Baso # (Auto) 100 Blood Type A Positive Antibody Screen Negative PFSH Social History Smoking Status: Never smoker Meds Home Medications and Allergies Allergies Allergy/AdvReac Type Severity Reaction Status Date / Time No Known Drug Allergies Allergy Verified 08/06/18 12:42 Review of Systems Review of Systems Narrative: Negative Exam Narrative Exam Narrative: Alert female no acute distress grossly ruptured by nurse Objective Labs Result Diagrams: 04/10/19 03:43 Labs: Laboratory Results - last 24 hr 04/10/19 04/10/19 03:43 03:43 WBC 11.4 H RBC 4.96 Hgb 13.9 Hct 42.5 MCV 85.6 MCH 28.0 MCHC 32.7 RDW 15.1 H Plt Count 265 Neut % (Auto) 72.1 Lymph % (Auto) 19.8 L [place] % (Auto) 6.9 Eos % (Auto) 0.6 L Baso % (Auto) 0.6 Neut # (Auto) 8300 H Lymph # (Auto) 2300 [place] # (Auto) 800 Eos # (Auto) 100 Baso # (Auto) 100 Blood Type A Positive Antibody Screen Negative Assessment and Plan Assessment and Plan Assessment and Plan narrative: 3857 week intrauterine ruptured. Prepare for vaginal delivery usual care
--- NOTE | 2019-04-10 05:23 | PM.OBPRVD ---
Labor & Delivery Delivery date: 04/10/19 Intrapartal events: Precipitous Labor < 3 hours Cervical ripening method: none Induction method: none Delivery monitor: external FHT Route of delivery: L&D Laceration Description: Periurethral - 1st Degree and Periurethral - 2nd Degree Delivery repair: vicryl Estimated blood loss (mL): 200 Anesthesia type: Local Complications: None Narrative: Patient presented with spontaneous rupture of membranes. heart monitor was reactive. She had rapid flu is for stage for for first-time mom. heart monitor was excellent until shortly before the 1st age were she had some discolorations. She was requesting epidural. Right before epidural was placed she was checked and was found to be complete. 4 minutes later with maybe 1 push she delivered. over bilateral periurethral tears small superficial vaginal tear. No other changes. No resuscitation was required. Apgars 7 and 8. Delivered by nurse. Placenta was delivered by Antoinette spontaneous intact 3 vessels. Labial tears were repaired with running 4 0 Vicryl. Subcuticular. Anesthesia is 1% lidocaine. Mother and infant required no further care doing well. Will be followed. Routine care. Plan for aftercare: Admit and routine care
[2019-04-10] MEDS: LEVOTHYROXINE 100 MCG TABLET PO (08:13)
[2019-04-10 08:20] VITALS: BP 155/74
[2019-04-10] MEDS: DOCUSATE 250 MG CAPSULE PO (08:43)
[2019-04-10] MEDS: IBUPROFEN 600 MG TABLET PO (18:05)
[2019-04-11] MEDS: LEVOTHYROXINE 100 MCG TABLET PO (07:19)
--- NOTE | 2019-04-11 10:29 | PM.PN.1 ---
Subjective Subjective Date Patient Seen: 04/11/19 Time Patient Seen: 10:30 Interval history: Overall doing well. Breast-feeding is been difficult. Having trouble with latch. No other changes. Bleeding seems to be okay. Pain is well controlled. Nursing feels like could use a little more time with breast-feeding Education. Exam Narrative Exam Narrative: Alert female smiling intermittently in no acute distress. Breasts show no erythema. Uterus is firm at umbilicus. Extremities are normal. Skin shows no rash Objective Labs Result Diagrams: 04/10/19 03:43 Assessment & Plan Assessment & Plan narrative: day 1. Overall doing well. Has been having some issues with breast-feeding. Nursing staff and myself feels that for 1 more day of education would be highly recommended. No other changes. Education done. Pain control is good with ibuprofen would like also option of Tylenol. No other changes. Expect discharge tomorrow.
[2019-04-11] MEDS: ACETAMINOPHEN 325 MG TABLET 650 MG PO (11:36)
[2019-04-11] MEDS: DOCUSATE 250 MG CAPSULE PO (11:37)
[2019-04-12] MEDS: IBUPROFEN 600 MG TABLET PO ×2 (01:27→07:36)
[2019-04-12] MEDS: LEVOTHYROXINE 100 MCG TABLET PO (07:36)
--- NOTE | 2019-04-12 08:00 | P.DS_ITS ---
Discharge Providers Provider Date of admission: 04/10/19 01:18 Discharge Date: 04/12/19 Primary care physician: Jose Luis Schwartz MD Consults: 04/10/19 05:08 Consult to [employer] Routine Comment: Discharge provider: Jose Luis Schwartz MD Summary Hospital Course Date Patient Seen: 04/12/19 Time Patient Seen: 08:00 Procedures: An SCD Peripartum Data Delivery Method: Natural Vaginal Laceration description: Periurethral - 1st Degree Episiotomy description: None Procedures: Repair of first-degree labial tears complications: none Status at Discharge Cognitive/behavioral status at discharge: oriented Functional status at discharge: independent ambulation Overall status at discharge: patient is progressing back to baseline Time Spent with Patient Time attestation: Total time spent providing and/or coordinating discharge services: 30 minutes. Objective Labs Result Diagrams: 04/10/19 03:43 Exam Narrative Exam Narrative: Alert smiling female no acute distress. Lungs are clear. Heart regular rate and rhythm. Abdomen uterus is firm. Minimal tenderness. Extremities without any tenderness. Skin is without rash Discharge Plan Discharge Plan Patient Disposition: Home Discharge Med Rec/Prescriptions Prescriptions: New ibuprofen 600 mg Tablet 600 mg PO Q6HR PRN (Reason: Pain, Mild (1-3)) Qty: 30 RF: 0 Continued levothyroxine 100 mcg tablet RF: 0 Follow up/Referrals: Jose Luis Schwartz MD [Primary Care Provider] - 6 Weeks Provider Discharge Instructions Diet: Diet as Tolerated Activity: As tolerated. No sexual activity until 6 week follow-up. Discharge Data Primary Care Provider: Jose Luis Schwartz
[2019-04-12] MEDS: MEASLES,MUMPS,RUBELLA VACC/PF 0.5 ML VIAL SUBCUT (13:06)
[2019-04-12 14:22] VITALS: BP 125/83; PULSE 79; RESP 17; TEMP 36.6
== END 2019-04-12 13:58 | disposition home or self-care (01) | DRG 807 ==
PROVIDERS: Admitting Provider Family Medicine; PCP Family Medicine; Visit Provider Family Medicine
DX: O42.02 Full-term premature rupture of membranes, onset of labor within 24 hours of rupture (principal); Z37.0 Single live birth; O70.1 Second degree perineal laceration during delivery; O71.82 Other specified trauma to perineum and vulva; Z3A.38 38 weeks gestation of pregnancy
CPT/HCPCS: 59050; 85025; 86850; 86900; 86901; G0379

== ENCOUNTER 2019-04-13 00:06 | Emergency (ER) | payer OTHER, MEDICAID, SELFPAY ==
[2019-04-13 00:22] VITALS: BP 137/86; PULSE 62; RESP 16; TEMP 36.9; O2SAT 99
--- NOTE | 2019-04-13 00:26 | ED.RECABL ---
HPI - Recheck/Abnormal Lab/Rx General Chief Complaint: Recheck/Abnormal Lab/Rx Stated Complaint: thinks suture stretched/pain (had baby this am) Time Seen by Provider: 04/13/19 00:08 Source: patient Mode of arrival: Ambulatory Limitations: no limitations History of Present Illness HPI narrative: Patient is a 23-year-old female who within the past couple days underwent a spontaneous vaginal delivery. She did have some lacerations that were closed at the time of the event. She states things have been going well until earlier this evening when she felt like 1 of the stitches had ?popped? Related Data Home Medications Medication Instructions Recorded Confirmed levothyroxine 04/11/19 Previous Rx's Medication Instructions Recorded ibuprofen 600 mg PO Q6HR PRN #30 tab 04/12/19 Allergies Allergy/AdvReac Type Severity Reaction Status Date / Time No Known Drug Allergies Allergy Verified 08/06/18 12:42 Review of Systems Genitourinary Comments: Pain in the vaginal area Integumentary/Breasts Skin/Breast: Denies rash Hematologic/Lymphatic Hematologic/Lymphatic: Denies easy bruising [facility] Medical History History of wisdom tooth extraction (Chronic) Posttraumatic headache (Chronic) Social History Smoking Status: Never smoker Exam Initial Vital Signs Initial Vital Signs: Vital Signs Temperature 98.4 F 04/13/19 00:22 Pulse Rate 62 04/13/19 00:22 Respiratory Rate 16 04/13/19 00:22 Blood Pressure 137/86 04/13/19 00:22 Pulse Oximetry 99 04/13/19 00:22 Const General: cooperative and comfortable Orientation: alert and awake Resp Effort & Inspection: normal respiratory effort Cardio Rate: regular rate Other: The laceration around the left labial area does appear to have had a small dehiscence however there is no active bleeding. It is a superficial laceration. Skin Other: See section Neuro General: alert and awake Cognition: normal cognition Speech: speech normal Extrem General: normal to inspection and capillary refill normal Course Vital Signs Vital signs: Vital Signs - 8 hr 04/13/19 00:22 Temperature 98.4 F Pulse Rate 62 Respiratory Rate 16 Blood Pressure 137/86 Pulse Oximetry 99 MDM - Recheck/Abnormal Lab/Rx MDM Narrative Medical decision making narrative: Does appear that the left labial laceration has had a slight dehiscence. Is not actively bleeding. No indication to re-sutured. We discussed care instructions and return precautions. Patient expressed understanding and agreement with plan. Discharge Plan Departure Patient Disposition: Home Clinical Impression: Laceration re-check Discharge Date/Time: 04/13/19 00:58 Activity Restrictions/Additional Instructions: It does look like the stitches that were placed on the left labium have pulled out. This is most likely the cause of your symptoms. This will heal on its own. It is going to be sore for a while. Keep all of your scheduled medical appointments. Return to the emergency department for any new or worsening symptoms Prescriptions: No Action levothyroxine 100 mcg tablet RF: 0 ibuprofen 600 mg Tablet 600 mg PO Q6HR PRN (Reason: Pain, Mild (1-3)) Qty: 30 RF: 0 Referrals: Jose Luis Schwartz MD [Primary Care Provider] -
== END 2019-04-13 00:58 | disposition home or self-care (01) ==
PROVIDERS: Emergency Provider Emergency Medicine; PCP Family Medicine
DX: Z48.89 Encounter for other specified surgical aftercare (principal)
CPT/HCPCS: 99282

== ENCOUNTER 2019-09-27 19:46 | Emergency (ER) | payer OTHER, MEDICAID, SELFPAY ==
[2019-09-27 20:04] VITALS: BP 126/83; PULSE 64; RESP 16; TEMP 36.4; O2SAT 97
--- NOTE | 2019-09-27 22:13 | ED_ITS ---
HPI - Female Genitourinary General Chief complaint: Urogenital-Female Stated complaint: IUD Is Falling Out Time Seen by Provider: 09/27/19 22:10 Source: patient Mode of arrival: Ambulatory Limitations: no limitations History of Present Illness HPI Narrative: This is a 24-year-old female comes to the emergency department with complaint of her IUD possibly falling out. Patient states that she was in the restroom and had sensation that her IUD was sticking out. She states she is not really having any pain. She has not had any spotting or vaginal bleeding. She did have a little bit of cramping earlier. She denies any other symptoms. She states the IUD was placed in May. She has not had any fevers, no chills. No nausea or vomiting. No did vaginal discharge. She has not had any issues with bowel movements. She sees Dr. Schwartz and had a placed by someone affiliated with their office but does not remember exactly who. She has not had any other complications or with it so far. Related Data Home Medications Medication Instructions Recorded Confirmed levothyroxine 04/11/19 Previous Rx's Medication Instructions Recorded ibuprofen 600 mg PO Q6HR PRN #30 tab 04/12/19 Allergies Allergy/AdvReac Type Severity Reaction Status Date / Time No Known Drug Allergies Allergy Verified 08/06/18 12:42 Review of Systems Review of Systems ROS Unobtainable: All systems reviewed & are unremarkable except as noted in HPI and below Patient History Medical History Anxiety (Acute ~2010) Broken jaw (Acute ~2002) Depression (Acute ~2010) Posttraumatic headache (Chronic) Ruptured lumbar disc (Acute ~2002) Scoliosis (Acute ~2004) Surgical History H/O oral surgery (Acute ~2000) History of wisdom tooth extraction (Chronic) Family History (Updated 04/19/19 @ 14:07 by Mirtha Lucas CMA) Mother Mental health problem Grandfather Heart disease Hypertension Mental health problem Stroke Grandmother Hypertension Other Family history non-contributory alcohol intake frequency: 0-2 drinks per day Substance Use Type: does not use Exam Narrative Exam Narrative: GENERAL: Alert and oriented x three, moderately obese female in mild distress. HEENT: Head normocephalic, atraumatic, EOMI, pupils reactive, face symmetric, moist mucous membranes NECK: Supple, full range of motion CARDIOVASCULAR: Regular rate and rhythm without murmurs, rubs or gallops. RESPIRATORY: Breath sounds equal bilaterally, no wheezes rales or rhonchi. ABDOMEN: Soft, nontender. Normoactive bowel sounds all 4 quadrants. No guarding or rebound, rigidity, no mass : No CVA tenderness. Female: externa vaginal examl normal, no vaginal bleeding, no discharge, no cervical motion tenderness, normal speculum exam, no adnexal tenderness/mass. Bimanual exam is normal, no enlarged or tender uterus. Non-gravid. Patient's IUD strings are present, there is no portion of the IUD itself that is extruding into the vaginal canal and appears to be fully inside the cervix. EXTREMITIES: Normal range of motion, no clubbing or edema. Neurovascularly intact NEUROLOGICAL: Cranial nerves II through XII grossly intact. Moving all extremities SKIN: Warm, dry, no petechiae, no rashes or lesions. Initial Vital Signs Initial Vital Signs: Vital Signs Temperature 97.6 F 09/27/19 20:04 Pulse Rate 64 09/27/19 20:04 Respiratory Rate 16 09/27/19 20:04 Blood Pressure 126/83 09/27/19 20:04 Pulse Oximetry 97 09/27/19 20:04 Course Vital Signs Vital signs: Vital Signs - 8 hr 09/27/19 20:04 Temperature 97.6 F Pulse Rate 64 Respiratory Rate 16 Blood Pressure 126/83 Pulse Oximetry 97 MDM - Female Genitourinary Lab Data Labs: Point of Care Testing Test Results Negative Urine Dip Bedside Urine Glucose Negative Bedside Urine Bilirubin - Negative Bedside Urine Ketone - Negative Urine Specific [place] 1.020 Bedside Urine Occult Blood - Negative Bedside Urine pH 6.0 Bedside Urine Protein - Negative Bedside Urine Urobilinogen - Negative Bedside Urine Nitrite - Negative Bedside Urine Leukocytes +/- 15 Esterase [facility] Narrative Medical decision making narrative: Patient's IUD is in place on exam. Her strings are little on the long side and she may have felt these poking her in the vaginal area. She declined to feel for a string check for her own future purposes but recommended to follow up with primary care as needed or if she has continued issues. Discharge Plan Departure Patient Disposition: Home Clinical Impression: IUD (intrauterine device) in place Discharge Date/Time: 09/27/19 22:53 Activity Restrictions/Additional Instructions: Your IUD appears in place today here strings are a little long and this may have been what you are feeling earlier. If you have any additional concerns follow-up with her primary care physician. Return to the ER for fevers, abdominal pain, pelvic pain, vomiting, persistent vaginal bleeding or any other new or concerning symptoms Prescriptions: No Action levothyroxine 100 mcg tablet RF: 0 ibuprofen 600 mg Tablet 600 mg PO Q6HR PRN (Reason: Pain, Mild (1-3)) Qty: 30 RF: 0 Referrals: Doris Schwartz ARNP [Primary Care Provider] -
== END 2019-09-27 22:53 | disposition home or self-care (01) ==
PROVIDERS: Emergency Provider Emergency Medicine; PCP Internal Medicine
DX: T83.9XXA Unspecified complication of genitourinary prosthetic device, implant and graft, initial encounter (principal)
CPT/HCPCS: 81003; 81025; 99282

== ENCOUNTER → 2021-07-26 10:51 | Outpatient (CLI) | payer OTHER, MEDICAID, SELFPAY ==
--- NOTE | 2021-07-26 10:55 | DI.US.S_ITS ---
LIMITED ULTRASOUND OF RIGHT BREAST: 07/26/2021 CLINICAL: Focal right breast pain. No prior exams were available for comparison. Real-time ultrasound of the right breast 12-1 o'clock region was performed. Zhao scale images of the real-time examination were reviewed. No significant abnormalities were seen sonographically in the right breast. IMPRESSION: NEGATIVE There is no sonographic evidence of malignancy. There is no abnormality seen in the right breast to correspond with the pain, however, clinical followup is recommended. Follow-up with ACR/ACS guidelines. This exam was interpreted at Station ID: [id number]. Electronically Signed By: Nicolas osman/morgan:07/26/2021 11:28:08 letter sent: Clinical Evaluation Ultrasound BI-RADS: 1 Negative
== END ==
PROVIDERS: PCP Internal Medicine; Referring Provider Internal Medicine; Visit Provider Internal Medicine
DX: N63.15 Unspecified lump in the right breast, overlapping quadrants (principal); N64.4 Mastodynia
CPT/HCPCS: 76642

== ENCOUNTER → 2022-03-22 11:48 | Outpatient (CLI) | payer OTHER, MEDICAID, SELFPAY ==
[2022-03-22 13:25] LABS: Add Manual Diff / Slide Review NO; Basophils Absolute Auto 0 /uL (0-100); Basophils Percent Auto 0.2 % (0-2); Eosinophils Absolute Auto 100 /uL (0-450); Eosinophils Percent Auto 1.4 % (2-4); Hematocrit 43.4 % (36-46); Hemoglobin 14.6 g/dL (12.0-16.0); Lymphocytes Absolute Auto 1900 /uL (1100-4500); Lymphocytes Percent Auto 22.3 % (25-40); Mean Corpuscular HGB Conc 33.5 % (30-36); Mean Corpuscular Hemoglobin 28.8 PG (26-34); Monocytes Absolute Auto 500 /uL (0-900); Monocytes Percent Auto 6.5 % (3-14); Neutrophils Absolute Auto 5800 /uL (1500-7000); Neutrophils Percent Auto 69.6 % (50-75); Platelet Count 298 X10^3/uL (150-400); Red Blood Cell Count 5.05 X10^6/uL (4.0-5.2); Red Cell Distribution Width 13.7 % (11.6-14.8); White Blood Cell Count 8.4 X10^3/uL (4.5-11.0)
[2022-03-22 13:44] LABS: Alanine Aminotransferase 23 IU/L (<35); Albumin 4.4 g/dL (3.5-5.0); Albumin Globulin Ratio 1.2 (1.0-2.8); Alkaline Phosphatase 74 U/L (38-126); Aspartate Aminotransferase 25 IU/L (14-36); BUN Creatinine Ratio 22.2 (6-22); Bilirubin Total 0.6 mg/dL (0.2-1.3); Blood Urea Nitrogen 12 mg/dL (7-17); Carbon Dioxide 30 mmol/L (22-32); Chloride 105 mmol/L (98-107); Cholesterol 254 mg/dL (140-199); Estimated Glomerular Filt Rate > 60 mL/min (>60); Globulin 3.7 g/dL (1.7-4.1); Glucose 81 mg/dL (70-100); HDL Cholesterol 38 mg/dL (40-60); HEMOLYSIS < 15 (0-50); LDL Cholesterol Calculated 186 mg/dL (<100); Potassium 4.5 mmol/L (3.4-5.1); Sodium 141 mmol/L (137-145); Total Protein 8.1 g/dL (6.3-8.2); Triglycerides 150 mg/dL (35-150)
[2022-03-22 14:28] LABS: Thyroid Stimulating Hormone 2.64 uIU/mL (0.47-4.68)
== END ==
PROVIDERS: PCP Internal Medicine; Referring Provider Internal Medicine; Visit Provider Internal Medicine
DX: R55 Syncope and collapse (principal); R42 Dizziness and giddiness
CPT/HCPCS: 36415; 80053; 80061; 84443; 85025

== ENCOUNTER 2022-10-29 10:28 | Emergency (ER) | payer OTHER, MEDICAID, SELFPAY ==
[2022-10-29 10:32] VITALS: BP 137/65; PULSE 99; RESP 14; TEMP 37.1; O2SAT 98; BMI 37.0
[2022-10-29] MEDS: IBUPROFEN SUSP 100 MG/5 ML UDC 600 MG PO (10:54)
--- NOTE | 2022-10-29 11:24 | ED.GENADULT ---
HPI - General Adult General Chief complaint: Upper Respiratory Symptoms Stated complaint: issues swallowing/throat on fire with drink/eat Time Seen by Provider: 10/29/22 10:58 Source: patient Mode of arrival: Ambulatory History of Present Illness HPI narrative: 27-year-old female nonsmoker with history of hypothyroid presents from the walk-in clinic for evaluation of sore throat and rash. She states for the past day or 2 she is had significant sore throat and pain with swallowing. She states her tonsils are swollen and she has had a rash that started on her hands and progress to her arms chest and abdomen. She denies any face, tongue or lip swelling. She denies any difficulty controlling secretions or having any trouble breathing. She had been seen at the walk-in clinic and had a strep swab that was positive. She denies nausea, vomiting or diarrhea. Related Data Home Medications Medication Instructions Recorded Confirmed levothyroxine 100 mcg tablet 04/11/19 Previous Rx's Medication Instructions Recorded ibuprofen 600 mg tablet 600 mg PO Q6HR PRN Pain, Mild 04/12/19 (1-3) #30 tabs penicillin V potassium 500 mg 500 mg PO TID 10 days #30 tabs 10/29/22 tablet Allergies Allergy/AdvReac Type Severity Reaction Status Date / Time No Known Drug Allergies Allergy Verified 08/06/18 12:42 Review of Systems Review of Systems Narrative: GENERAL: See HPI HEENT: See HPI RESPIRATORY: Denies dyspnea, cough, wheezing, hemoptysis, sputum. CARDIOVASCULAR: Denies chest pain, palpitations, orthopnea, edema, GASTROINTESTINAL: Denies nausea, vomiting, abdominal pain, diarrhea, constipation, melena. : Denies dysuria, frequency, incontinence, hematuria, urinary retention. MUSCULOSKELETAL: denies weakness, joint pain, or bony pain SKIN: See HPI NEUROLOGIC: Denies weakness, headache, numbness, change in speech, confusion, seizures, incoordination. PSYCHIATRIC: No concerning psychosocial issues. 12 point review of systems is negative except for those stated above Patient History Medical History Anxiety (~2010) Broken jaw (~2002) Depression (~2010) Posttraumatic headache Ruptured lumbar disc (~2002) Scoliosis (~2004) Surgical History H/O oral surgery (~2000) History of wisdom tooth extraction Family History Mother Mental health problem Grandfather Heart disease Hypertension Mental health problem Stroke Grandmother Hypertension Other Family history non-contributory Social History marital status: unmarried,single household members: none pets and animals: Yes education level: other occupational status: unemployed juhi/zoroastrianism: Voodoo travel history: other seatbelt use: always helmet use: Yes water heater temp set < 120 deg: Yes working smoke detector in home: Yes fire extinguisher in home: Yes firearms in home: Yes firearms unloaded and locked: Yes do you feel safe at home: Yes Smoking Status: Never smoker alcohol intake: current substance use type: does not use during the past year weight has: increased > 10 lbs well-balanced diet: about half the time daily servings fruits/ve-1 caffeine: Yes (RARE/OCCASIONAL; 1-2 DRINKS SODA) eating out: rarely or never Type(s) of exercise: walking frequency: 5-6 times per week duration: 30-45 minutes/day additional social history: DISABILITIES: VISION DEFICIENCIES-NEEDING PRESCRIPTION GLASSES. Smoking Status: Never smoker alcohol intake frequency: 0-2 drinks per day Substance Use Type: does not use Exam Narrative Exam Narrative: GENERAL: [27] year old patient appears stated age. Well-developed patient, in mild distress. HEAD: Atraumatic. Normocephalic. EYES: Pupils equal round and reactive. Extraocular motions intact. No scleral icterus. No injection or drainage. ENT: Nose without bleeding, purulent drainage. Posterior pharynx is erythematous with petechiae on soft palate, tonsils are swollen with minimal exudate, airway patent, controlling secretions. [place] tongue. No face, lip, tongue swelling NECK: Trachea midline. Mild tender anterior nodes CARDIOVASCULAR: Regular rate and rhythm without murmurs, gallops, or rubs. RESPIRATORY: Clear to auscultation. Breath sounds equal bilaterally. No wheezes, rales, or rhonchi. GASTROINTESTINAL: Abdomen soft, non-tender, nondistended. EXTREMITIES: No edema or joint tenderness. BACK: Nontender without deformity or crepitance. No flank tenderness. NEURO: AOx3. SKIN: Fine, faint, slightly raised blanching rash, without pain or pruritus Initial Vital Signs Initial Vital Signs: Vital Signs Temperature 98.8 F 10/29/22 10:32 Pulse Rate 99 H 10/29/22 10:32 Respiratory Rate 14 10/29/22 10:32 Blood Pressure 137/65 10/29/22 10:32 Pulse Oximetry 98 10/29/22 10:32 Oxygen Delivery Method Room Air 10/29/22 10:32 Course Orders Ordered: Discontinued Medications Acetaminophen (Acetaminophen 325 Mg Tablet) 650 mg PO NOW ONE Stop: 10/29/22 10:39 Last Admin: 10/29/22 11:22 Dose: Not Given Documented By: JESSIKA Dexamethasone (Dexamethasone 10 Mg/Ml Vial) 10 mg PO NOW ONE Stop: 10/29/22 11:24 Last Admin: 10/29/22 11:29 Dose: 10 mg Documented By: JESSIKA Ibuprofen (Ibuprofen Susp 100 Mg/5 Ml Udc) 600 mg PO NOW ONE Stop: 10/29/22 10:39 Last Admin: 10/29/22 10:54 Dose: 600 mg Documented By: JESSIKA Penicillin G Benzathine (Penicillin G Benzathine 1,200,000 Unit/2 Ml Syringe) 1,200,000 unit IM NOW ONE Stop: 10/29/22 11:24 Last Admin: 10/29/22 11:29 Dose: 1,200,000 unit Documented By: JESSIKA Vital Signs Vital signs: Vital Signs - 8 hr 10/29/22 10:32 Temperature 98.8 F Pulse Rate 99 H Respiratory Rate 14 Blood Pressure 137/65 Pulse Oximetry 98 Oxygen Delivery Method Room Air Medical Decision Making [facility] Narrative Medical decision making narrative: [27] year old patient presents with sore throat and rash and recently tested positive for strep Multiple etiologies for patient's symptoms considered including, but not limited to: [Strep pharyngitis, scarlet fever, allergic reaction versus other] Prior Charts reviewed in our EMR Primary Historian: patient Labs reviewed and interpreted by myself: Rapid strep POC from walk-in clinic is positive Patient with symptoms consistent with strep pharyngitis and scarlet fever. Is nontoxic appearing, controlling secretions without difficulty breathing. She is had fever, sore throat and has tonsillar swelling with minimal exudate a fine blanching rash. She is given a single dose of penicillin G, Decadron, return precautions discussed Patient's symptoms improved over duration of stay with above-stated therapies. Findings and discharge diagnosis discussed with patient/family followed by verbalization of understanding Return precautions discussed with patient/family whom verbalize understanding of diagnosis and plan Discharge Plan Departure Patient Disposition: Home Clinical Impression: Strep pharyngitis Instructions: DI for Strep Throat Activity Restrictions/Additional Instructions: *You have been diagnosed with [strep pharyngitis] *What to do: *Please continue to take your regular medications as directed. *Please follow up with your primary care provider in 2-3 days, call for an appointment. Let them know you were seen in the Emergency Department and that we ask that you be seen in follow up. We will electronically transmit a record of today's note if your PCP is in our system *If you do not have a primary care provider please contact the [facility] Resource line at [phone]. They will ask some questions about your medical history and help get you set up with a doctor in the community. *Return to Emergency Department if you should have any new, worsening or concerning symptoms, such as [fever greater than 101 F, shaking chills, worsening pain, persistent vomiting or other bothersome symptoms] Prescriptions: No Action penicillin V potassium 500 mg tablet 500 mg PO TID 10 Days Qty: 30 0RF levothyroxine 100 mcg tablet ibuprofen 600 mg Tablet 600 mg PO Q6HR PRN (Reason: Pain, Mild (1-3)) Qty: 30 0RF Referrals: Doris Schwartz ARNP [Primary Care Provider] - Stand Alone Forms: Patient Portal/API, Work Release Note
[2022-10-29] MEDS: DEXAMETHASONE 10 MG/ML VIAL PO (11:29)
[2022-10-29] MEDS: PENICILLIN G BENZATHINE 1,200,000 UNIT/2 ML SYRINGE 1200000 UNIT IM (11:29)
[2022-10-29 12:00] VITALS: BP 122/78; PULSE 79; RESP 15; O2SAT 99
== END 2022-10-29 12:02 | disposition home or self-care (01) ==
PROVIDERS: Emergency Provider Emergency Medicine; PCP Internal Medicine
DX: J02.0 Streptococcal pharyngitis (principal); R21 Rash and other nonspecific skin eruption
CPT/HCPCS: 96372; 99283; J0561; J1100

== ENCOUNTER 2022-12-22 08:38 | Emergency (ER) | payer OTHER, MEDICAID, SELFPAY ==
[2022-12-22 08:52] VITALS: BP 161/86; PULSE 96; RESP 16; TEMP 36.4; O2SAT 99; BMI 37.0
--- NOTE | 2022-12-22 09:08 | ED_ITS ---
HPI - Nausea/Vomiting/Diarrhea General Chief complaint: Nausea/Vomiting/Diarrhea Stated complaint: kyle key Time Seen by Provider: 12/22/22 09:07 History of Present Illness HPI Narrative: Patient is a 27-year-old female history of hypothyroid presenting today with 7 days of diarrhea. She reports that her daughter had similar symptoms but has improved however she has at least 5-10 episodes of liquid diarrhea daily. She is had significant decrease in appetite although still able to tolerate fluids. 2 days ago she started feeling a little bit better starting to eat some however later that night she vomited. She has minimal abdominal pain or cramping. She is not dizzy or lightheaded. She denies any recent travel, well water or abnormal water no recent antibiotics. She denies fever chills body aches. Partner is not sick. Related Data Home Medications Medication Instructions Recorded Confirmed levothyroxine 100 mcg tablet 04/11/19 Previous Rx's Medication Instructions Recorded ibuprofen 600 mg tablet 600 mg PO Q6HR PRN Pain, Mild 04/12/19 (1-3) #30 tabs ondansetron 4 mg disintegrating 4 mg PO Q8H PRN nausea and 12/22/22 tablet vomiting #10 tabs Allergies Allergy/AdvReac Type Severity Reaction Status Date / Time No Known Drug Allergies Allergy Verified 08/06/18 12:42 Review of Systems Review of Systems ROS Unobtainable: All systems reviewed & are unremarkable except as noted in HPI and below Patient History Medical History (Updated 12/22/22 @ 09:58 by Yoselin Nova DO) Anxiety (~2010) Broken jaw (~2002) Depression (~2010) Posttraumatic headache Ruptured lumbar disc (~2002) Scoliosis (~2004) Surgical History H/O oral surgery (~2000) History of wisdom tooth extraction Family History Mother Mental health problem Grandfather Heart disease Hypertension Mental health problem Stroke Grandmother Hypertension Other Family history non-contributory Social History marital status: unmarried,single household members: none pets and animals: Yes education level: other occupational status: unemployed juhi/temple: Adventism travel history: other seatbelt use: always helmet use: Yes water heater temp set < 120 deg: Yes working smoke detector in home: Yes fire extinguisher in home: Yes firearms in home: Yes firearms unloaded and locked: Yes do you feel safe at home: Yes Smoking Status: Never smoker alcohol intake: current substance use type: does not use during the past year weight has: increased > 10 lbs well-balanced diet: about half the time daily servings fruits/ve-1 caffeine: Yes (RARE/OCCASIONAL; 1-2 DRINKS SODA) eating out: rarely or never Type(s) of exercise: walking frequency: 5-6 times per week duration: 30-45 minutes/day additional social history: DISABILITIES: VISION DEFICIENCIES-NEEDING PRESCRIPTION GLASSES. Smoking Status: Never smoker alcohol intake frequency: 0-2 drinks per day Substance Use Type: does not use Exam Initial Vital Signs Initial Vital Signs: Vital Signs Temperature 97.5 F L 12/22/22 08:52 Pulse Rate 96 H 12/22/22 08:52 Respiratory Rate 16 12/22/22 08:52 Blood Pressure 161/86 H 12/22/22 08:52 Pulse Oximetry 99 12/22/22 08:52 Oxygen Delivery Method Room Air 12/22/22 08:52 GENERAL: Alert pleasant well-appearing 27-year-old female HEENT: Head atraumatic,EOMI, pupils reactive, face symmetric, moist mucous membranes CARDIOVASCULAR: Regular rate and rhythm without murmurs, rubs or gallops. RESPIRATORY: Breath sounds equal bilaterally, no wheezes rales or rhonchi. ABDOMEN: Soft, nontender. Normoactive bowel sounds all 4 quadrants. No guarding or rebound. EXTREMITIES: Normal range of motion, no clubbing or edema. Neurovascularly intact NEUROLOGICAL: Alert and oriented x4.Normal gait and speech. SKIN: Warm, dry, no laceration, no petechiae, no rashes or lesions. Course Orders Ordered: ED Orders 12/22/22 09:30 CBC Auto Diff [Complete Blood Count AUTO DIFF] Stat CMP [Comprehensive Metabolic Panel] Stat Discontinued Medications Ondansetron HCl (Ondansetron 4 Mg/2 Ml Inj) 4 mg IV NOW ONE Stop: 12/22/22 09:08 Last Admin: 12/22/22 09:31 Dose: 4 mg Documented By: NR Vital Signs Vital signs: Vital Signs - 8 hr 12/22/22 08:52 Temperature 97.5 F L Pulse Rate 96 H Respiratory Rate 16 Blood Pressure 161/86 H Pulse Oximetry 99 Oxygen Delivery Method Room Air MDM - Nausea/Vomiting/Diarrhea Lab Data 12/22/22 09:30 12/22/22 09:30 Labs: Lab Results 12/22/22 12/22/22 Range/Units 09:30 09:30 WBC 4.6 (4.5-11.0) X10^3/uL RBC 5.15 (4.0-5.2) X10^6/uL Hgb 14.5 (12.0-16.0) g/dL Hct 43.0 (36-46) % MCV 83.6 (80-100) fL MCH 28.1 (26-34) PG MCHC 33.7 (30-36) % RDW 14.5 (11.6-14.8) % Plt Count 277 (150-400) X10^3/uL Neut % (Auto) 63.6 (50-75) % Lymph % (Auto) 21.3 L (25-40) % Warren % (Auto) 13.3 (3-14) % Eos % (Auto) 1.3 L (2-4) % Baso % (Auto) 0.5 (0-2) % Neut # (Auto) 3000 (7012-6920) /uL Lymph # (Auto) 1000 L (4118-4292) /uL Warren # (Auto) 600 (0-900) /uL Eos # (Auto) 100 (0-450) /uL Baso # (Auto) 0 (0-100) /uL Sodium 137 (137-145) mmol/L Potassium 3.5 (3.4-5.1) mmol/L Chloride 103 (98-107) mmol/L Carbon Dioxide 22 (22-32) mmol/L BUN 13 (7-17) mg/dL Creatinine 0.63 (0.52-1.04) mg/dL Estimated GFR > 60 (>60) mL/min BUN/Creatinine Ratio 20.6 (6-22) Glucose 99 (70-100) mg/dL Calcium 8.4 (8.4-10.2) mg/dL Total Bilirubin 0.4 (0.2-1.3) mg/dL AST 30 (14-36) IU/L ALT 33 (<35) IU/L Alkaline Phosphatase 85 (38-126) U/L Total Protein 8.2 (6.3-8.2) g/dL Albumin 4.5 (3.5-5.0) g/dL Globulin 3.7 (1.7-4.1) g/dL Albumin/Globulin Ratio 1.2 (1.0-2.8) Point of Care Testing Test Results Negative Urine Dip Bedside Urine Glucose Negative Bedside Urine Bilirubin - Negative Bedside Urine Ketone - Negative Urine Specific Felton 1.015 Bedside Urine Occult Blood - Negative Bedside Urine pH 6.0 Bedside Urine Protein - Negative Bedside Urine Urobilinogen - Negative Bedside Urine Nitrite - Negative Bedside Urine Leukocytes - Negative Esterase MDM Narrative Medical decision making narrative: Patient is a 27-year-old female with signs and symptoms consistent with a gastroenteritis. Multiple episodes of diarrhea a day however she did not have any diarrhea in the emergency department. No evidence of dehydration or electrolyte abnormality on labs. Abdomen is soft and nontender. She did not have any diarrhea while in the emergency department. There is no evidence of UTI. Recommend outpatient stool sample to rule out C diff however my suspicion is low. Daughter had similar symptoms resolved. Education on oral rehydration all questions have been addressed. Discharge Plan Departure Patient Disposition: Home Clinical Impression: Gastroenteritis Instructions: DI for Viral Gastroenteritis -- Adult Activity Restrictions/Additional Instructions: *You have been diagnosed with gastroenteritis *What to do: At this time increase fluid as tolerated he may increase diet as tolerated as well. Recommend staying hydrated with Gatorade or Gatorade like product. You can talk to your primary care provider about stool panel. *Continue to take medications as directed Zofran 4 mg every 8 hours if needed for nausea vomiting Imodium as needed *Follow up with your primary care provider in 2-3 days or call [phone] *Return to ER if you should have dizziness lightheadedness passing out not able to tolerate fluids or any new, worsening or concerning symptoms Prescriptions: New ondansetron 4 mg tablet,disintegrating 4 mg PO Q8H PRN (Reason: nausea and vomiting) Qty: 10 0RF No Action levothyroxine 100 mcg tablet ibuprofen 600 mg Tablet 600 mg PO Q6HR PRN (Reason: Pain, Mild (1-3)) Qty: 30 0RF Referrals: Doris Schwartz ARNP [Primary Care Provider] - Stand Alone Forms: Patient Portal/API
[2022-12-22] MEDS: ONDANSETRON 4 MG/2 ML INJ IV (09:31)
[2022-12-22 09:35] LABS: Add Manual Diff / Slide Review NO; Basophils Absolute Auto 0 /uL (0-100); Basophils Percent Auto 0.5 % (0-2); Eosinophils Absolute Auto 100 /uL (0-450); Eosinophils Percent Auto 1.3 % (2-4); Hemoglobin 14.5 g/dL (12.0-16.0); Lymphocytes Absolute Auto 1000 /uL (1100-4500); Lymphocytes Percent Auto 21.3 % (25-40); Mean Corpuscular HGB Conc 33.7 % (30-36); Mean Corpuscular Hemoglobin 28.1 PG (26-34); Mean Corpuscular Volume 83.6 fL (80-100); Monocytes Absolute Auto 600 /uL (0-900); Monocytes Percent Auto 13.3 % (3-14); Neutrophils Absolute Auto 3000 /uL (1500-7000); Neutrophils Percent Auto 63.6 % (50-75); Platelet Count 277 X10^3/uL (150-400); Red Blood Cell Count 5.15 X10^6/uL (4.0-5.2); Red Cell Distribution Width 14.5 % (11.6-14.8); White Blood Cell Count 4.6 X10^3/uL (4.5-11.0)
[2022-12-22 09:45] LABS: Alanine Aminotransferase 33 IU/L (<35); Albumin 4.5 g/dL (3.5-5.0); Albumin Globulin Ratio 1.2 (1.0-2.8); Alkaline Phosphatase 85 U/L (38-126); Aspartate Aminotransferase 30 IU/L (14-36); BUN Creatinine Ratio 20.6 (6-22); Bilirubin Total 0.4 mg/dL (0.2-1.3); Blood Urea Nitrogen 13 mg/dL (7-17); Calcium 8.4 mg/dL (8.4-10.2); Carbon Dioxide 22 mmol/L (22-32); Chloride 103 mmol/L (98-107); Estimated Glomerular Filt Rate > 60 mL/min (>60); Globulin 3.7 g/dL (1.7-4.1); Glucose 99 mg/dL (70-100); HEMOLYSIS < 15 (0-50); Potassium 3.5 mmol/L (3.4-5.1); Sodium 137 mmol/L (137-145); Total Protein 8.2 g/dL (6.3-8.2)
== END 2022-12-22 10:24 | disposition home or self-care (01) ==
PROVIDERS: Emergency Provider Emergency Medicine; PCP Internal Medicine
DX: K52.9 Noninfective gastroenteritis and colitis, unspecified (principal); R10.9 Unspecified abdominal pain; R11.2 Nausea with vomiting, unspecified
CPT/HCPCS: 36415; 80053; 81003; 81025; 85025; 96374; 99284; J2405

== ENCOUNTER → 2023-05-07 11:36 | Outpatient (CLI) | payer OTHER, SELFPAY ==
--- NOTE | 2023-05-07 11:38 | DI.RAD.S_ITS ---
PROCEDURE: XR WRIST LT MIN 3V INDICATIONS: Left wrist pain TECHNIQUE: 4 views of the wrist were acquired. COMPARISON: None. FINDINGS: Bones: No fractures or dislocations. No suspicious bony lesions. Scaphoid view: No fracture. Soft tissues: No suspicious soft tissue calcifications. IMPRESSION: No acute osseous abnormality. If pain persists with conservative management, consider repeat x-ray in 10-14 days or cross-sectional imaging. Dictated by: Eduar Mills M.D. on 05/07/2023 at 13:04 Approved by: Eduar Mills M.D. on 05/07/2023 at 13:05
== END ==
PROVIDERS: Referring Provider Nurse Practitioner Family; Visit Provider Nurse Practitioner Family
DX: M25.532 Pain in left wrist (principal)
CPT/HCPCS: 73110

== ENCOUNTER 2024-06-17 14:08 | Observation (INO) | payer OTHER, SELFPAY ==
[2024-06-17] VITALS (12 sets, daily range): BP systolic 136–169; BP diastolic 64–92; PULSE 98–110; RESP 15–43; TEMP 36.5–36.8; O2SAT 95–100; BMI 37.3
--- NOTE | 2024-06-17 14:18 | DI.US.S_ITS ---
PROCEDURE: US OB INDICATIONS: mother possible PIH at 34 weeks OUTSIDE/PRIOR DATING DATA: Working JERO given as 07/26/2024.. TECHNIQUE: Real-time scanning was performed of the fetus, with image documentation and biometric measurements. COMPARISON: None. FINDINGS: General: A single live intrauterine gestation is present. Presentation: Vertex. Placenta: Placental position is anterior , without previa. Amniotic fluid index: 18 cm, normal range is 5-24 cm. Single deepest vertical pocket is 6.2 cm. heart rate: 140 beats per minute. Maternal cervical canal: Not well seen. biometrics: Biparietal diameter: 8.8 cm equals 35 weeks 4 days Head circumference: 30.9 cm equals 34 weeks 3 days Abdominal circumference: 29.6 cm aerated colles 33 weeks 4 days Femur length: 6.6 cm equals 34 weeks 4 days Clinically estimated gestational age: 34 weeks 3 days Composite gestational age from present scan: 34 weeks 3 days Estimated weight and percentile: 2320 g, 30 second percentile IMPRESSION: No significant abnormality is seen. No significant discrepancy is found between the estimated gestational age based on these images and the estimated gestational age based upon the given dating. The cervix is not well seen. We strive to produce accurate, complete, and clear reports of imaging services. To assist us in improving patient care, this report was composed using standard report templates and voice recognition software. Therefore, it may contain abnormal punctuation, insertions and/or omissions. Occasional wrong-word or sound-alike substitutions may occur. Though we review the report and make efforts to correct it, we do recommend that the report be read carefully in proper context to recognize any text inaccuracies. Dictated by: Michoacano Mackay M.D. on 06/17/2024 at 17:08 Approved by: Michoacano Mackay M.D. on 06/17/2024 at 17:10
[2024-06-17 14:42] LABS: Add Manual Diff / Slide Review NO; Basophils Absolute Auto 100 /uL (0-100); Basophils Percent Auto 0.5 % (0-2); Eosinophils Absolute Auto 600 /uL (0-450); Eosinophils Percent Auto 4.5 % (2-4); Hematocrit 34.6 % (36-46); Hemoglobin 11.3 g/dL (12.0-16.0); Lymphocytes Absolute Auto 2000 /uL (1100-4500); Lymphocytes Percent Auto 14.6 % (25-40); Mean Corpuscular HGB Conc 32.7 % (30-36); Mean Corpuscular Hemoglobin 26.8 PG (26-34); Mean Corpuscular Volume 82.1 fL (80-100); Monocytes Absolute Auto 800 /uL (0-900); Neutrophils Absolute Auto 10300 /uL (1500-7000); Neutrophils Percent Auto 74.4 % (50-75); Platelet Count 304 X10^3/uL (150-400); Red Blood Cell Count 4.21 X10^6/uL (4.0-5.2); White Blood Cell Count 13.8 X10^3/uL (4.5-11.0)
[2024-06-17 14:43] LABS: Appearance Urine UA CLEAR; Bilirubin Urine UA NEGATIVE (NEGATIVE); Color Urine UA YELLOW; Glucose Urine UA NEGATIVE (Negative); Ketones Urine UA 3+ (NEGATIVE); Leukocyte Esterase Urine UA NEGATIVE (NEGATIVE); Nitrite Urine UA NEGATIVE (Negative); Occult Blood Urine UA TRACE-INTACT (Negative); Protein Urine UA NEGATIVE (Negative); Specific Gravity Urine UA 1.015 (1.000-1.035); Urobilinogen Urine UA 0.2 E.U./dL (0.2)
[2024-06-17 14:46] LABS: pH Urine UA 5.5 (4.5-8.0)
--- NOTE | 2024-06-17 14:49 | ED.GENADULT ---
HPI - General Adult General Chief complaint: OB/Uterine Contractions Stated complaint: Numbness in hands ,mouth and blurry vision Time Seen by Provider: 06/17/24 14:17 Source: patient Mode of arrival: Ambulatory History of Present Illness HPI narrative: 28-year-old female current at 34 weeks' gestation, EDC reported 07/26/2024 by first-trimester ultrasound, current care at [facility] provider Dr. Robertson, visiting family [place], when she developed numbness and tingling of the hands, some visual scotomata like symptoms, no double vision, mild headache, also some tingling of the tongue both sides. History of prior migraine headaches, non for recent years, but none during this , no injury or trauma. Regarding the she has not had any vaginal bleeding, does not feel contractions, denies leaking of fluids sensation. She had not been on any blood pressure medications during this , nor recalls any blood pressure issues for last . She denies sore throat, cough, fevers, chills, chest pain, abdominal pain, leg swelling. No shaking or seizure activity. Related Data Home Medications Medication Instructions Recorded Confirmed levothyroxine 100 mcg tablet 04/11/19 05/07/23 sertraline 25 mg tablet 25 mg PO DAILY 05/07/23 05/07/23 Allergies Allergy/AdvReac Type Severity Reaction Status Date / Time No Known Drug Allergies Allergy Verified 05/07/23 11:33 Review of Systems Review of Systems Narrative: See HPI Patient History Medical History (Updated 06/17/24 @ 15:15 by Hai Fontanez MD) Depression (~2010) Anxiety (~2010) Ruptured lumbar disc (~2002) Broken jaw (~2002) Scoliosis (~2004) Posttraumatic headache Surgical History H/O oral surgery (~2000) History of wisdom tooth extraction Family History Mother Mental health problem Grandfather Heart disease Hypertension Mental health problem Stroke Grandmother Hypertension Other Family history non-contributory Social History marital status: unmarried,single household members: none pets and animals: Yes education level: other occupational status: unemployed juhi/restorationist: Spiritism travel history: other seatbelt use: always helmet use: Yes water heater temp set < 120 deg: Yes working smoke detector in home: Yes fire extinguisher in home: Yes firearms in home: Yes firearms unloaded and locked: Yes do you feel safe at home: Yes Smoking Status: Never smoker alcohol intake: current substance use type: does not use during the past year weight has: increased > 10 lbs well-balanced diet: about half the time daily servings fruits/ve-1 caffeine: Yes (RARE/OCCASIONAL; 1-2 DRINKS SODA) eating out: rarely or never Type(s) of exercise: walking frequency: 5-6 times per week duration: 30-45 minutes/day additional social history: DISABILITIES: VISION DEFICIENCIES-NEEDING PRESCRIPTION GLASSES. Smoking Status: Never smoker alcohol intake frequency: 0-2 drinks per day Substance Use Type: does not use Exam Narrative Exam Narrative: GENERAL: Well-developed patient, in mild distress. HEAD: Atraumatic. Normocephalic. EYES: Pupils equal round and reactive. Extraocular motions intact. No scleral icterus. No injection or drainage. ENT: Nose without bleeding, purulent drainage. Throat without erythema, tonsillar hypertrophy or exudate. Airway patent. NECK: Trachea midline. Non tender CARDIOVASCULAR: Regular rate and rhythm without murmurs, gallops, or rubs. RESPIRATORY: Clear to auscultation. Breath sounds equal bilaterally. No wheezes, rales, or rhonchi. GASTROINTESTINAL: Gravid abdomen without tenderness. EXTREMITIES: No edema or joint tenderness. BACK: Nontender without deformity or crepitance. No flank tenderness. NEURO: AOx3. Motor functions grossly nonfocal. Brisk patellar reflexes noticed, no clonus obvious. SKIN: No rash or erythema of visible areas Initial Vital Signs Initial Vital Signs: Vital Signs Pulse Rate 99 H 06/17/24 14:18 Respiratory Rate 21 06/17/24 14:18 Pulse Oximetry 96 06/17/24 14:18 Course Orders Ordered: ED Orders 06/17/24 14:18 US OB limited Stat 06/17/24 14:25 CBC Auto Diff [Complete Blood Count AUTO DIFF] Stat CMP [Comprehensive Metabolic Panel] Stat Prothrombin Time INR Stat Uric Acid Stat 06/17/24 14:30 Urinalysis and Microscopic Stat Acetaminophen (Acetaminophen 325 Mg Tablet) 975 mg PO Q8H JOHN Diphenhydramine HCl (Diphenhydramine 25 Mg Tablet) 50 mg PO NOW ONE Stop: 06/17/24 22:01 Labetalol HCl (Labetalol 20 Mg/4 Ml Syringe) 20 mg IV PRN PRN; Protocol PRN Reason: SBP>= 160 or DBP >=110 Discontinued Medications Acetaminophen (Acetaminophen 325 Mg Tablet) 1,000 mg PO NOW ONE Stop: 06/17/24 16:00 Last Admin: 06/17/24 16:07 Dose: 1,000 mg Documented By: ED Vital Signs Vital signs: Vital Signs - 8 hr 06/17/24 14:18 06/17/24 14:19 06/17/24 14:20 Temperature 98.2 F Pulse Rate 99 H 102 H 100 H Respiratory Rate 21 15 24 Blood Pressure 169/68 H Pulse Oximetry 96 97 95 Oxygen Delivery Method Room Air 06/17/24 14:30 06/17/24 14:36 06/17/24 14:37 Temperature Pulse Rate 99 H 99 H Respiratory Rate 18 17 18 Blood Pressure 154/80 H Pulse Oximetry 98 99 99 Oxygen Delivery Method 06/17/24 14:37 06/17/24 14:40 06/17/24 14:41 Temperature Pulse Rate 109 H 103 H Respiratory Rate 25 H 19 Blood Pressure 140/81 Pulse Oximetry 99 99 Oxygen Delivery Method 06/17/24 14:41 06/17/24 14:50 06/17/24 14:50 Temperature Pulse Rate 110 H Respiratory Rate 23 Blood Pressure 136/90 137/92 H Pulse Oximetry 99 Oxygen Delivery Method 06/17/24 15:00 06/17/24 15:01 06/17/24 15:01 Temperature Pulse Rate 102 H 102 H Respiratory Rate 43 H 31 H Blood Pressure 137/64 Pulse Oximetry 99 100 Oxygen Delivery Method Medical Decision Making Lab Data 06/17/24 14:25 06/17/24 14:25 Labs: Lab Results 06/17/24 06/17/24 Range/Units 14:25 14:30 WBC 13.8 H (4.5-11.0) X10^3/uL RBC 4.21 (4.0-5.2) X10^6/uL Hgb 11.3 L (12.0-16.0) g/dL Hct 34.6 L (36-46) % MCV 82.1 (80-100) fL MCH 26.8 (26-34) PG MCHC 32.7 (30-36) % RDW 14.0 (11.6-14.8) % Plt Count 304 (150-400) X10^3/uL Neut % (Auto) 74.4 (50-75) % Lymph % (Auto) 14.6 L (25-40) % Armstrong % (Auto) 6.0 (3-14) % Eos % (Auto) 4.5 H (2-4) % Baso % (Auto) 0.5 (0-2) % Neut # (Auto) 36394 H (8766-9017) /uL Lymph # (Auto) 2000 (4882-1396) /uL Armstrong # (Auto) 800 (0-900) /uL Eos # (Auto) 600 H (0-450) /uL Baso # (Auto) 100 (0-100) /uL PT 11.7 (9.4-12.5) SECONDS INR 1.0 (0.9-1.3) Sodium 133 L (137-145) mmol/L Potassium 3.7 (3.4-5.1) mmol/L Chloride 108 H (98-107) mmol/L Carbon Dioxide 15 L (22-32) mmol/L BUN 6 L (7-17) mg/dL Creatinine 0.46 L (0.52-1.04) mg/dL Estimated GFR > 60 (>60) mL/min BUN/Creatinine Ratio 13.0 (6-22) Glucose 74 (70-100) mg/dL Uric Acid 4.8 (2.5-6.2) mg/dL Calcium 9.1 (8.4-10.2) mg/dL Total Bilirubin 0.5 (0.2-1.3) mg/dL AST 26 (14-36) IU/L ALT 16 (<35) IU/L Alkaline Phosphatase 148 H (38-126) U/L Total Protein 6.9 (6.3-8.2) g/dL Albumin 3.6 (3.5-5.0) g/dL Globulin 3.3 (1.7-4.1) g/dL Albumin/Globulin Ratio 1.1 (1.0-2.8) Urine Color Yellow Urine Appearance Clear Urine pH 5.5 (4.5-8.0) Ur Specific Newell 1.015 (1.000-1.035) Urine Protein Negative (Negative) Urine Glucose (UA) Negative (Negative) g/dL Urine Ketones 3+ H (NEGATIVE) Urine Occult Blood Trace-intact (Negative) Urine Nitrate Negative (Negative) Urine Bilirubin Negative (NEGATIVE) Urine Urobilinogen 0.2 (0.2) E.U./dL Ur Leukocyte Esterase Negative (NEGATIVE) Urine RBC 0-1/hpf (0-5/HPF) Urine WBC 0-1/hpf (0-5/HPF) Ur Squamous Epith Cells 5-10 /hpf H (0-5/HPF) Urine Bacteria Few (2-10) H (None) Ur Culture Indicated? Cult not indicated Vol Urine Centrifuged 10ml (spun) U Random Total Protein 19 H (0-12) mg/dL Urine Creatinine 44.05 mg/dL Protein/Creatinin Ratio 0.43 GRAM/24H MDM Narrative Medical decision making narrative: 28-year-old female at 34 weeks' gestation by 1st trimester ultrasound, no blood pressure problems this , visiting from [facility], has headache and blurred vision some scotomata like visual changes, with numbness of bilateral hands and tongue. Doubt allergic reaction. Consider atypical migraine. Concern in context of for possible preeclampsia. Screening blood pressure 140/98, brisk patellar reflexes but no clonus. Symptoms seemed to be improving. History of migraine headaches also noted. Nonfocal neuro exam. Afebrile, sirs screen negative. EFM tocometry requested, OB nursing at bedside as well for assessment. We will order ultrasound biophysical profile and check cervical length. PIH labs sent including CBC, CMP, uric acid, urinalysis. No symptoms of contractions but on early tocometer there seemed to be some intermittent contractions every few minutes, patient does not apparently feel this, looks comfortable. We will ask for cervical length on ultrasound imaging. Obstetrics consult anticipated once data available. Hemoglobin 13, platelets adequate, uric acid not elevated. Urinalysis seemed contaminated, yet no proteinuria obvious. Patient seems to be having contractions, [facility] [place], we will consult obstetrics on-call [id number], case discussed with clinical field specialist Dr. Aviles on-call, she prefers Tylenol only for headache at this time, aware of workup results available thus far, further management at birthing center, requests transfer over to the birthing center for further evaluation at this time. Discharge Plan Departure Patient Disposition: Home Clinical Impression: Headache, 34 weeks gestation of , Elevated blood pressure reading
[2024-06-17 14:54] LABS: Alanine Aminotransferase 16 IU/L (<35); Albumin 3.6 g/dL (3.5-5.0); Albumin Globulin Ratio 1.1 (1.0-2.8); Alkaline Phosphatase 148 U/L (38-126); Aspartate Aminotransferase 26 IU/L (14-36); Bilirubin Total 0.5 mg/dL (0.2-1.3); Blood Urea Nitrogen 6 mg/dL (7-17); Calcium 9.1 mg/dL (8.4-10.2); Carbon Dioxide 15 mmol/L (22-32); Chloride 108 mmol/L (98-107); Estimated Glomerular Filt Rate > 60 mL/min (>60); Globulin 3.3 g/dL (1.7-4.1); Glucose 74 mg/dL (70-100); HEMOLYSIS < 15 (0-50); Potassium 3.7 mmol/L (3.4-5.1); Sodium 133 mmol/L (137-145); Total Protein 6.9 g/dL (6.3-8.2); Uric Acid 4.8 mg/dL (2.5-6.2)
[2024-06-17 14:57] LABS: Bacteria Urine Few (2-10); Culture Indicated Urine Cult Not Indicated; RBC Urine 0-1/HPF (0-5/HPF); Squamous Epithelial Cell Urine 5-10 /HPF (0-5/HPF); Urine Volume 10mL (spun); WBC Urine 0-1/HPF (0-5/HPF)
[2024-06-17 15:24] LABS: Prothrombin Time 11.7 SECONDS (9.4-12.5)
[2024-06-17] MEDS: ACETAMINOPHEN 325 MG TABLET 1000 MG PO (16:07)
[2024-06-17 16:19] LABS: Creatinine Urine Random 44.05 mg/dL; Protein (Total) Urine Random 19 mg/dL (0-12); Protein Creatinine Ratio Urine 0.43 GRAM/24H
[2024-06-17 17:37] LABS: Fetal Fibronectin Negative
--- NOTE | 2024-06-17 18:48 | PM.OBHP.1 ---
OB HPI Date/Time Date of admission: 06/17/24 Date Patient Seen: 06/17/24 Time Patient Seen: 18:48 History of Present Condition Chief complaint: Numbness in hands ,mouth and blurry vision : 2 Para: 1 Estimated Date of Delivery: 07/26/24 Estimated Gestational Age (weeks): 34+3 Narrative: Micheline Sherman is a 28 year old female Comments: presented to triage today for new onset vision changes, hand numbness, and headache today. She states that during her ferry ride [place] from [place] today, she started seeing ovals in her vision, and making it difficult to see. She also had onset of hand and tongue numbness, as well as headache. She reports that she has had a history of migraines like this before, with similar aura symptoms. She also reported pain in her right lower abdomen, as well as some vaginal pain. She otherwise denies right upper quadrant pain, chest pain, shortness of breath, leaking fluid, vaginal bleeding, or decreased movement. History of Present care: good care Narrative: Hx of pre-eclampsia at term with G1 (not induced for this, but kept for a few days afterward; reports labile blood pressures then too, but otherwise no issues with blood pressure outside of pregancy) Evaluation Evaluation Baseline heart rate: 140 Variability: Moderate (11-25) monitor accelerations: Present Monitor Decelerations: Absent Contraction Frequency (minutes): 3 Uterine Contraction Intensity: Mild Status: Category l Dilation (cm): 1 Effacement (%): 0 station: -3 [facility] Medical History (Updated 06/17/24 @ 15:15 by Hai Fontanez MD) Depression (~2010) Anxiety (~2010) Ruptured lumbar disc (~2002) Broken jaw (~2002) Scoliosis (~2004) Posttraumatic headache Surgical History H/O oral surgery (~2000) History of wisdom tooth extraction Family History Mother Mental health problem Grandfather Heart disease Hypertension Mental health problem Stroke Grandmother Hypertension Other Family history non-contributory Social History marital status: unmarried,single household members: none pets and animals: Yes education level: other occupational status: unemployed juhi/confucianist: Hoahaoism travel history: other seatbelt use: always helmet use: Yes water heater temp set < 120 deg: Yes working smoke detector in home: Yes fire extinguisher in home: Yes firearms in home: Yes firearms unloaded and locked: Yes do you feel safe at home: Yes Smoking Status: Never smoker alcohol intake: current substance use type: does not use during the past year weight has: increased > 10 lbs well-balanced diet: about half the time daily servings fruits/ve-1 caffeine: Yes (RARE/OCCASIONAL; 1-2 DRINKS SODA) eating out: rarely or never Type(s) of exercise: walking frequency: 5-6 times per week duration: 30-45 minutes/day additional social history: DISABILITIES: VISION DEFICIENCIES-NEEDING PRESCRIPTION GLASSES. Meds Home Medications and Allergies Home Medications Medication Instructions Recorded Confirmed Type levothyroxine 100 mcg tablet 04/11/19 05/07/23 History sertraline 25 mg tablet 25 mg PO DAILY 05/07/23 05/07/23 History Allergies Allergy/AdvReac Type Severity Reaction Status Date / Time No Known Drug Allergies Allergy Verified 05/07/23 11:33 Review of Systems Review of Systems ROS: Yes All systems reviewed with the patient and are negative except as otherwise documented OB Exam Vital signs Blood Pressure: 155/73 Pulse Rate: 98 Temperature: 97.7 F HENMT Head: normocephalic and atraumatic Resp Effort & Inspection: normal respiratory effort and able to speak in complete sentences Cardio Rate: regular rate Rhythm: regular rhythm Extremities Lower extremity: Yes normal to inspection GI Inspection: normal to inspection Palpation: Yes soft and No tender Objective Imaging US - abdomen: Radiologist's impression: FINDINGS: General: A single live intrauterine gestation is present. Presentation: Vertex. Placenta: Placental position is anterior , without previa. Amniotic fluid index: 18 cm, normal range is 5-24 cm. Single deepest vertical pocket is 6.2 cm. heart rate: 140 beats per minute. Maternal cervical canal: Not well seen. biometrics: Biparietal diameter: 8.8 cm equals 35 weeks 4 days Head circumference: 30.9 cm equals 34 weeks 3 days Abdominal circumference: 29.6 cm aerated colles 33 weeks 4 days Femur length: 6.6 cm equals 34 weeks 4 days Clinically estimated gestational age: 34 weeks 3 days Composite gestational age from present scan: 34 weeks 3 days Estimated weight and percentile: 2320 g, 30 second percentile IMPRESSION: No significant abnormality is seen. No significant discrepancy is found between the estimated gestational age based on these images and the estimated gestational age based upon the given dating. The cervix is not well seen. We strive to produce accurate, complete, and clear reports of imaging services. To assist us in improving patient care, this report was composed using standard report templates and voice recognition software. Therefore, it may contain abnormal punctuation, insertions and/or omissions. Occasional wrong-word or sound-alike substitutions may occur. Though we review the report and make efforts to correct it, we do recommend that the report be read carefully in proper context to recognize any text inaccuracies. Dictated by: Michoacano Mackay M.D. on 06/17/2024 at 17:08 Approved by: Michoacano Mackay M.D. on 06/17/2024 at 17:10 Labs 06/17/24 14:25 06/17/24 14:25 Labs: Laboratory Results - last 24 hr 06/17/24 06/17/24 06/17/24 14:25 14:30 16:30 WBC 13.8 H RBC 4.21 Hgb 11.3 L Hct 34.6 L MCV 82.1 MCH 26.8 MCHC 32.7 RDW 14.0 Plt Count 304 Neut % (Auto) 74.4 Lymph % (Auto) 14.6 L Stephens % (Auto) 6.0 Eos % (Auto) 4.5 H Baso % (Auto) 0.5 Neut # (Auto) 06544 H Lymph # (Auto) 2000 Stephens # (Auto) 800 Eos # (Auto) 600 H Baso # (Auto) 100 PT 11.7 INR 1.0 Sodium 133 L Potassium 3.7 Chloride 108 H Carbon Dioxide 15 L BUN 6 L Creatinine 0.46 L Estimated GFR > 60 BUN/Creatinine Ratio 13.0 Glucose 74 Uric Acid 4.8 Calcium 9.1 Total Bilirubin 0.5 AST 26 ALT 16 Alkaline Phosphatase 148 H Total Protein 6.9 Albumin 3.6 Globulin 3.3 Albumin/Globulin Ratio 1.1 Urine Color Yellow Urine Appearance Clear Urine pH 5.5 Ur Specific [place] 1.015 Urine Protein Negative Urine Glucose (UA) Negative Urine Ketones 3+ H Urine Occult Blood Trace-intact Urine Nitrate Negative Urine Bilirubin Negative Urine Urobilinogen 0.2 Ur Leukocyte Esterase Negative Urine RBC 0-1/hpf Urine WBC 0-1/hpf Ur Squamous Epith Cells 5-10 /hpf H Urine Bacteria Few (2-10) H Ur Culture Indicated? Cult not indicated Vol Urine Centrifuged 10ml (spun) U Random Total Protein 19 H Urine Creatinine 44.05 Protein/Creatinin Ratio 0.43 Fibronectin Negative Assessment and Plan Assessment and Plan Assessment and Plan narrative: 28yo at 34+3wks now meeting criteria for pre-eclampsia, unclear if she has severe features at this time given that her headache and vision changes today are similar to her migraine with aura symptoms. She reports some improvement in her headache with tylenol, from the 03/30 that it was to now a 4/10. She also reports improvement in her vision changes as well. She otherwise has not had any sustained severe range blood pressures, or other lab findings diagnostic of severe pre-eclampsia. Her evaluation is also reassuring against labor at this time, given 1cm dilation and negative FFN. Discussed with patient and her , and recommend admission for 24hr urine protein collection as well as continued blood pressure monitoring. Discussed that if she develops severe features, then she would need to be transferred to a facility with a NICU, given that she would need to be delivered as she is past 34wks. -admit for overnight observation and 24hr urine collection -Q1hr vitals overnight -NSTs Q shift -recheck PIH labs in the AM -if any severe features develop, will start betamethasone, magnesium, and transfer Time-Based Coding :: [60min] spent with patient and on the chart (including review of chart, obtaining history, exam, reviewing outside data, placing orders, documenting exam and treatment plan, and counseling patient) on [06/17/24].
[2024-06-17] MEDS: CALCIUM CARBONATE 500 MG TAB 1000 MG PO (20:30)
[2024-06-17] MEDS: diphenhydrAMINE 25 MG TABLET 50 MG PO (20:31)
[2024-06-18] MEDS: CALCIUM CARBONATE 500 MG TAB 1000 MG PO ×2 (01:05→19:08)
[2024-06-18 06:07] LABS: Add Manual Diff / Slide Review NO; Basophils Absolute Auto 0 /uL (0-100); Basophils Percent Auto 0.4 % (0-2); Eosinophils Absolute Auto 500 /uL (0-450); Eosinophils Percent Auto 4.7 % (2-4); Hematocrit 33.9 % (36-46); Hemoglobin 11.1 g/dL (12.0-16.0); Lymphocytes Absolute Auto 2300 /uL (1100-4500); Lymphocytes Percent Auto 21.3 % (25-40); Mean Corpuscular HGB Conc 32.7 % (30-36); Mean Corpuscular Hemoglobin 26.7 PG (26-34); Mean Corpuscular Volume 81.7 fL (80-100); Monocytes Absolute Auto 900 /uL (0-900); Monocytes Percent Auto 7.9 % (3-14); Neutrophils Absolute Auto 7100 /uL (1500-7000); Neutrophils Percent Auto 65.7 % (50-75); Platelet Count 306 X10^3/uL (150-400); Red Blood Cell Count 4.15 X10^6/uL (4.0-5.2); Red Cell Distribution Width 13.9 % (11.6-14.8); White Blood Cell Count 10.8 X10^3/uL (4.5-11.0)
[2024-06-18 06:22] LABS: Alanine Aminotransferase 15 IU/L (<35); Albumin 3.3 g/dL (3.5-5.0); Albumin Globulin Ratio 1.1 (1.0-2.8); Alkaline Phosphatase 139 U/L (38-126); Aspartate Aminotransferase 26 IU/L (14-36); BUN Creatinine Ratio 7.7 (6-22); Bilirubin Total 0.4 mg/dL (0.2-1.3); Blood Urea Nitrogen 4 mg/dL (7-17); Calcium 8.9 mg/dL (8.4-10.2); Carbon Dioxide 18 mmol/L (22-32); Chloride 108 mmol/L (98-107); Estimated Glomerular Filt Rate > 60 mL/min (>60); Globulin 3.1 g/dL (1.7-4.1); Glucose 91 mg/dL (70-100); HEMOLYSIS < 15 (0-50); Potassium 3.4 mmol/L (3.4-5.1); Sodium 133 mmol/L (137-145); Total Protein 6.4 g/dL (6.3-8.2); Uric Acid 5.7 mg/dL (2.5-6.2)
[2024-06-18 20:18] LABS: Protein (Total) Urine Random 26 mg/dL (0-12)
[2024-06-18 20:22] LABS: Collection Time Urine 24 Hours; Total Protein 24 Hour Urine 598 mg/day (42-225); Total Volume Urine 2300 mL
== END 2024-06-18 20:07 | disposition home or self-care (01) ==
LOC: ED 14:17 → LABOR 15:12
PROVIDERS: Admitting Provider Student in an Organized Health Care Education/Training Program; Emergency Provider Emergency Medicine; Visit Provider Student in an Organized Health Care Education/Training Program
DX: O14.93 Unspecified pre-eclampsia, third trimester (principal); Z3A.34 34 weeks gestation of pregnancy
CPT/HCPCS: 36415; 59025; 76815; 80053; 81001; 82570; 82731; 84112; 84156; 84166; 84550; 85025; 85610; 99283; G0378